=== PATIENT | female | born 1955 | race Caucasian/White ===

== ENCOUNTER 2020-01-25 09:51 | Inpatient (IN) ==
[2020-01-25] MEDS ORDERED: PIPERACILLIN SODIUM/TAZOBACTAM 3.375 GM in DEXTROSE 5 % IN WATER 100 ML IV ONE ×2 (10:28)
[2020-01-25 10:50] LABS: Hematocrit 38.5 % (37.0-47.0); Hemoglobin 12.9 gm/dL (12.5-16.0); Mean Cell Volume 88.7 fl (78-100); Mean Corpuscular Hemoglobin 29.7 pg (27-31); Mean Corpuscular Hgb Conc 33.5 g/dl (32-36); Mean Platelet Volume 9.5 fl (8-12.5); Neutrophil # 5.5 K/mm3 (1.3-6.0); Neutrophil % 65.7 % (42-75.0); Platelet Count 255 K/mm3 (150-450); Red Blood Count 4.34 M/mm3 (4.2-5.4); Red Cell Distribution Width 15.3 % (11.5-14.0); White Blood Count 8.4 K/mm3 (4.0-10.5)
[2020-01-25 11:15] LABS: Albumin * 3.5 gm/dl (3.4-5.0); Anion Gap 13.2 mmol/L (6.8-13.8); BUN/Creatinine Ratio 14.4 (9.0-21.6); Bilirubin, Total 0.5 mg/dL (0.0-1.1); Ca. Corrected For Albumin 9.3 mg/dL (8.4-10.2); Calcium * 9.2 mg/dL (7.9-10.9); Carbon Dioxide 27.1 mmol/L (24-32.6); Potassium 4.3 mmol/L (3.4-4.6); Total Protein 8.3 gm/dL (6.2-8.2)
[2020-01-25 11:16] LABS: CRP 14.4 mg/dL (0.0-0.9)
[2020-01-25] MEDS ORDERED: NORMAL SALINE 1,000 ML IV ONE (11:16)
[2020-01-25 11:36] LABS: Hemoglobin A1C 6.3 % (4.00-6.0)
--- NOTE | 2020-01-25 12:40 | ERNOTE ---
Lower Extremity HPI - Narrative Date of Service: 01/25/20 - General Lower Extremities Pain: 1st toe: right Time Seen by Provider: 01/25/20 10:18 Source: patient Exam Limitations: no limitations - Immun/Allergies/Home Medications Immunizations: IMMUNIZATION HX Immunizations Up to Date Yes History of Influenza Vaccine Yes Hx Pneumococcal Vaccination No Allergies/Adverse Reactions: Allergies Allergy/AdvReac Type Severity Reaction Status Date / Time codeine [Codeine] Allergy Severe Itching Verified 12/10/19 14:49 latex Allergy Severe Itching Verified 12/10/19 14:49 Home Medications: HOME MEDICATIONS Levothyroxine Sodium [Synthroid] 100 mcg PO DAILY@0630 #30 tab 10/29/14 [Last Taken 10/27/14] albuterol sulfate 90 mcg/actuation breath activated powder inhaler 4 inh IH Q4H PRN 04/02/19 [Last Taken Unknown] Losartan Potassium [Cozaar] 25 mg PO DAILY 04/26/19 [Last Taken Unknown] estradiol 1 g VG DAILY #42.5 g 05/09/19 [Last Taken Unknown] ibuprofen 800 mg tablet 800 mg PO TID 05/09/19 [Last Taken Unknown] Fluticasone Propionate [Flonase] 1 spray NS BID 01/25/20 [Last Taken Unknown] Sulfamethoxazole/Trimethoprim [Bactrim Ds] 1 tab PO BID 01/25/20 [Last Taken Unknown] - History of Present Illness Narrative: patient presents to the ED for worsenign infection right toe. She has had this for over 2 weeks. Thre is a hole on the bottom of the toe that she realts a piece of gravel was pulled out of. The toe became red and gradually worsening. Started on Bacrim approx 2 days ago at [facility]. Worsening despite this with increased redness and swelling. Has felt feverish at times. No other trauma. No drainage. Occurred: other - 2 weeks Method of Injury: Reports: no apparent injury Loss of Consciousness: Reports: no loss of consciousness Modifying Factors - (Improves): Reports: other - nothing Modifying Factors - (Worsens): Reports: other - nothing Associated Symptoms: Denies: unable to bear weight Other Injuries: Reports: none Subsequent Symptoms: Reports: other - neuropathy Prior Treament: Reports: recently seen, currently on antibiotics. Denies: recently hospitalized Review of Systems - Review of Systems Constitutional: Present: See HPI EYE: Present: no symptoms reported ENT: Present: no symptoms reported Respiratory: Absent: shortness of breath Cardiology: Absent: chest pain Gastrointestinal/Abdominal: Absent: abdominal pain Genitourinary: Absent: dysuria Musculoskeletal: Present: See HPI Skin: Present: See HPI Neurological: Absent: weakness All Other Systems: All systems neg except as marked Medical History (Last Reviewed 01/25/20 @ 12:38 by Joel Sheehan MD) Anxiety Asthma Deficient knowledge of caesarean delivery Depression Hypertension Type 2 diabetes mellitus Surgical History: Surgical History (Last Reviewed 01/25/20 @ 12:38 by Joel Sheehan MD) H/O dilation and curettage History of History of tonsillectomy Family History: Family History (Last Reviewed 01/25/20 @ 12:38 by Joel Sheehan MD) Father CVA (cerebral vascular accident) Emphysema lung Social History: (Last Reviewed 01/25/20 @ 12:38 by Joel Sheehan MD) Social History: adopted: No Marital status: Single household members: none number of children: 1 number of grandchildren: 4 current occupational status: disabled Highest education level completed: high school graduate Service: No Tobacco: Smoking Status: Never smoker Alcohol: alcohol intake: never Dietary Habits: caffeine: No Physical Exam - Physical Exam General Appearance: Present: alert, no apparent distress Head Exam: Present: normal inspection, no evidence of injury Eye Exam: Normal inspection: bilateral, PERRL: bilateral Ears, Nose, Throat: Present: normal ENT inspection Neck: Present: normal inspection Respiratory: Present: no respiratory distress, normal breath sounds, no a ccessory muscle use, lungs clear Cardiovascular/Chest: Present: regular rate, rhythm, normal peripheral pulses, other - strong DP pulse Gastrointestinal/Abdominal: Present: normal bowel sounds, nontender, soft Extremity Exam: Present: other - Right 1st toe with redness, swelling and small area of desquamation. There is a hole in the bottom of the toe. No blackened area. Left bottome of toe has a small blackened area but this is not bothering her. Neurological Exam: Present: alert, no motor/sensory deficits Skin Exam: Present: normal color, warm/dry, other - see extremity exam Progress - Results and Orders Patient's Lab Results:: I have reviewed the patient's lab results. - Vital Signs Patient's Vital Signs:: I have reviewed the patient's vital signs. Vital Signs: Vital Signs 01/25/20 10:06 01/25/20 11:03 Temperature 36.6 C Pulse Rate 67 63 Respiratory Rate 14 14 Blood Pressure 156/94 H 121/80 O2 Sat by Pulse Oximetry 98 97 - X-Ray X-Ray #1 X-Ray: foot Interpretation: Interp. by me X-ray Comments: I reviewed images as well as official radiology report - Progress/Reassessment Chief Complaint: Lower Extremity Pain/ Injury Progress Note-Subjective: 01/25/20 13:08 Patient given IV fluids and IV antibiotics. Halo'd Dr Oviedo, he recommends admission. D/W Dr Cade who will admit with consultation to Dr Oviedo. Patient is agreeable. Departure Clinical Impression: Toe infection, Failure of outpatient treatment - Departure Disposition: Still a patient Condition: Stable
[2020-01-25] MEDS ORDERED: IBUPROFEN 800 MG TABLET PO PRN (22:18)
--- NOTE | 2020-01-25 22:37 | HP ---
Chief Complaint - Chief Complaint Date of Service: 01/25/20 Time of Service: 10:15 Chief Complaint: Right great toe swelling and redness History of Present Illness: Lupe is a 64 yo female with PMH of diabetes (controlled with diet s lala losing significant weight), diabetic neuropathy with loss of sensation in feet. She reports walking outside with shoes a week ago and got a pebble lodged in her right great toe. A friend helped to dig it out and since then the right great toe has become more swollen and red. She does not feel pain. She reports she has been having fever and chills at home. She was seen in the walk in clinic in [place] and prescribed bactrim 3 days ago. She reports no improvement since starting this medication. She reports a prior history of MRSA. Due to worsening redness she came to [facility] ER today. Xray showed evidence of cellulitis but no presence of osteomyelitis on xray. Medical History (Last Reviewed 01/25/20 @ 14:29 by Brent Vail RN) Anxiety Asthma Deficient knowledge of caesarean delivery Depression Hypertension Type 2 diabetes mellitus Surgical History: Surgical History (Last Reviewed 01/25/20 @ 14:29 by Brent Vail RN) H/O dilation and curettage History of History of tonsillectomy Family History: Family History (Last Reviewed 01/25/20 @ 14:29 by Brent Vail RN) Father CVA (cerebral vascular accident) Emphysema lung Social History: (Last Reviewed 01/25/20 @ 14:29 by Brent Vail RN) Social History: adopted: No Marital status: Single household members: none number of children: 1 number of grandchildren: 4 current occupational status: disabled Highest education level completed: high school graduate Service: No Tobacco: Smoking Status: Never smoker Alcohol: alcohol intake: never Dietary Habits: caffeine: No Review Of Systems (GEN) - Review of Systems Generalized/Overall Review: Present: Chills, Fever, Diaphoresis. Absent: Weakness EENTM: Present: No Symptoms Reported Respiratory: Absent: Cough, Shortness of Breath Cardiac: Present: Edema. Absent: Chest Pain Abdominal: Absent: Nausea, Vomiting Genitourinary: Present: No Symptoms Reported Musculoskeletal: Present: No Symptoms Reported Neurological: Present: Numbness, Tingling Skin: Present: Change in Color. Absent: Lesions Immunizations: IMMUNIZATION HX Immunizations Up to Date Yes History of Influenza Vaccine Yes Hx Pneumococcal Vaccination No Allergies/Adverse Reactions: Allergies Allergy/AdvReac Type Severity Reaction Status Date / Time codeine [Codeine] Allergy Severe Itching Verified 12/10/19 14:49 latex Allergy Severe Itching Verified 12/10/19 14:49 Home Medications: HOME MEDICATIONS albuterol sulfate 90 mcg/actuation breath activated powder inhaler 4 inh IH Q4H PRN 04/02/19 [Last Taken Unknown] ibuprofen 800 mg tablet 800 mg PO TID PRN 05/09/19 [Last Taken Unknown] Fluticasone Propionate [Flonase] 1 spray NS BID 01/25/20 [Last Taken Unknown] Levothyroxine Sodium [Synthroid] 75 mcg PO DAILY 01/25/20 [Last Taken Unknown] Losartan Potassium 50 mg PO DAILY 01/25/20 [Last Taken Unknown] Sulfamethoxazole/Trimethoprim [Bactrim Ds] 1 tab PO BID 01/25/20 [Last Taken Unknown] Exam - Exam Vital Signs: Vital Signs - Last Taken Temp 36.6 C 01/25/20 18:47 Pulse 65 01/25/20 18:47 Resp 18 01/25/20 18:47 BP 149/89 01/25/20 18:47 Pulse Ox 95 01/25/20 18:47 Constitutional: Present: Alert, Oriented x3, Cooperative ENT Exam: Present: hearing grossly normal Eye Exam: bilateral eye: normal inspection Respiratory: Present: lungs clear, normal breath sounds, no respiratory distress Cardiovascular/Chest: Present: regular rate, rhythm, no murmur Peripheral Pulses: radial (R): 2+, radial (L): 2+ Abdomen: Present: Normal bowel sounds, soft, nontender Skin Exam: Present: other - Right great phalanx entirely swollen and erythematous. Dime sized open wound on dorsal and plantar surface. Neurologic: Present: alert, normal mood/affect, oriented x 3 Appearance: Present: appropriate appearance, appropriate insight Eye contact: Present: cooperative, good eye contact, normal speech Thoughts: Present: normal thought pattern, no apparent hallucination Diagnostic Studies: Abnormal Lab Results 01/25/20 01/25/20 01/25/20 Range/Units 10:40 10:40 10:40 RDW 15.3 H (11.5-14.0) % Lymphocytes % 19.6 L (20-51) % Monocytes % 9.5 H (0.0-9) % Eosinophils % 3.7 H (0.0-3.0) % Basophils % 1.1 H (0.0-1.0) % ESR 84 H (0-15) mm/hr Creatinine 1.53 H (0.4-1.4) mg/dL Est GFR (Non-Af Amer) 37 L D (60-130) mL/min Random Glucose 112 H (70-110) mg/dL Hemoglobin A1c (4.00-6.0) % Lactic Acid, Venous (0.4-2.0) mmol/L C-Reactive Prot, Quant 14.4 H (0.0-0.9) mg/dL Total Protein 8.3 H (6.2-8.2) gm/dL 01/25/20 01/25/20 01/25/20 Range/Units 10:40 10:40 13:31 RDW (11.5-14.0) % Lymphocytes % (20-51) % Monocytes % (0.0-9) % Eosinophils % (0.0-3.0) % Basophils % (0.0-1.0) % ESR (0-15) mm/hr Creatinine (0.4-1.4) mg/dL Est GFR (Non-Af Amer) (60-130) mL/min Random Glucose (70-110) mg/dL Hemoglobin A1c 6.3 H (4.00-6.0) % Lactic Acid, Venous 2.3 H* 2.1 H (0.4-2.0) mmol/L C-Reactive Prot, Quant (0.0-0.9) mg/dL Total Protein (6.2-8.2) gm/dL Laboratory Results WBC 8.4 K/mm3 (4.0-10.5) 01/25/20 10:40 RBC 4.34 M/mm3 (4.2-5.4) 01/25/20 10:40 Hgb 12.9 gm/dL (12.5-16.0) 01/25/20 10:40 Hct 38.5 % (37.0-47.0) 01/25/20 10:40 MCV 88.7 fl (78-100) 01/25/20 10:40 MCH 29.7 pg (27-31) 01/25/20 10:40 MCHC 33.5 g/dl (32-36) 01/25/20 10:40 RDW 15.3 % (11.5-14.0) H 01/25/20 10:40 Plt Count 255 K/mm3 (150-450) 01/25/20 10:40 MPV 9.5 fl (8-12.5) 01/25/20 10:40 Immature Gran % (Auto) 0.40 % (0.001-0.429) 01/25/20 10:40 Immature Gran # (Auto) 0.03 K/mm3 (0.000-0.0310) 01/25/20 10:40 Neutrophils % 65.7 % (42-75.0) 01/25/20 10:40 Lymphocytes % 19.6 % (20-51) L 01/25/20 10:40 Monocytes % 9.5 % (0.0-9) H 01/25/20 10:40 Eosinophils % 3.7 % (0.0-3.0) H 01/25/20 10:40 Basophils % 1.1 % (0.0-1.0) H 01/25/20 10:40 Nucleated RBC % 0.0 k/mm3 (0-1) 01/25/20 10:40 Neutrophils # 5.5 K/mm3 (1.3-6.0) 01/25/20 10:40 Lymphocytes # 1.65 k/mm3 (1.5-3.5) 01/25/20 10:40 Monocytes # 0.8 k/mm3 (0.0-1.0) 01/25/20 10:40 Eosinophils # 0.3 k/mm3 (0.0-0.7) 01/25/20 10:40 Absolute Basophils 0.1 k/mm3 (0.0-0.1) 01/25/20 10:40 ESR 84 mm/hr (0-15) H 01/25/20 10:40 Sodium 139 mmol/L (132-142) 01/25/20 10:40 Plasma Sodium 139 mmol/L (130-142) 01/25/20 10:40 Potassium 4.3 mmol/L (3.4-4.6) 01/25/20 10:40 Chloride 103 mmol/L (97-106) 01/25/20 10:40 Carbon Dioxide 27.1 mmol/L (24-32.6) 01/25/20 10:40 Anion Gap 13.2 mmol/L (6.8-13.8) 01/25/20 10:40 BUN 22 mg/dL (3-23) 01/25/20 10:40 Creatinine 1.53 mg/dL (0.4-1.4) H 01/25/20 10:40 Est GFR (Non-Af Amer) 37 mL/min (60-130) L D 01/25/20 10:40 BUN/Creatinine Ratio 14.4 (9.0-21.6) 01/25/20 10:40 Random Glucose 112 mg/dL (70-110) H 01/25/20 10:40 Mean Blood Glucose 124 mg/dL 01/25/20 10:40 Hemoglobin A1c 6.3 % (4.00-6.0) H 01/25/20 10:40 Lactic Acid, Venous 2.1 mmol/L (0.4-2.0) H 01/25/20 13:31 Calcium 9.2 mg/dL (7.9-10.9) 01/25/20 10:40 Calcium Adj for Albumin 9.3 mg/dL (8.4-10.2) 01/25/20 10:40 Total Bilirubin 0.5 mg/dL (0.0-1.1) 01/25/20 10:40 AST 15 U/L (0-48) 01/25/20 10:40 ALT 22 U/L (19-67) 01/25/20 10:40 Alkaline Phosphatase 65 U/L (50-170) 01/25/20 10:40 C-Reactive Prot, Quant 14.4 mg/dL (0.0-0.9) H 01/25/20 10:40 Total Protein 8.3 gm/dL (6.2-8.2) H 01/25/20 10:40 Albumin 3.5 gm/dl (3.4-5.0) 01/25/20 10:40 SARS-CoV-2 (PCR) Not detected (ND) 01/25/20 13:02 Assessment/Plan - Narrative Narrative: Lupe is a 64 yo female with a right diabetic foot ulcer secondary to diabetic neuropathy secondary to Type II Diabetes Mellitus. Her diabetes is now well controlled with diet and activity. She is not on medications and A1c is 6.3%. However the nerve damage is already in place from previously when her blood sugars were not controlled. She was started on zosyn in the ER. She has a history of MRSA so I will add Vancomycin at this time. Xray does not show evidence of osteomyelitis although it is high likely given the appearance of her foot. I will attempt to heal infection with antibiotics, but she may ultimately need amputation. Will consult ortho to evaluate and give recommendations as far as amputation is concerned. She has no pain due to neuropathy with sensory loss. Will admit to inpatient as she has failed outpatient treatment of cellulitis with bactrim for 3 days prior to admission. - Assessment/Plan (1) Cellulitis of great toe, right Problem: Acute (2) Diabetic ulcer of right foot due to type 2 diabetes mellitus Problem: Acute (3) Neuropathic ulcer of foot due to type 2 diabetes mellitus Problem: Acute
[2020-01-25] MEDS ORDERED: VANCOMYCIN/WATER FOR INJ (PEG) 1 GM/200 ML BAG IV SCH (23:00)
[2020-01-25] MEDS: SACCHAROMYCES BOULARDII 250 MG CAPSULE PO SCH (23:37)
[2020-01-26] MEDS: PIPERACILLIN SODIUM/TAZOBACTAM 3.375 GM in DEXTROSE 5 % IN WATER 100 ML IV SCH ×4 (02:33→09:27)
[2020-01-26 06:09] LABS: Hematocrit 34.5 % (37.0-47.0); Hemoglobin 11.4 gm/dL (12.5-16.0); Mean Cell Volume 87.3 fl (78-100); Mean Corpuscular Hemoglobin 28.9 pg (27-31); Mean Platelet Volume 9.5 fl (8-12.5); Neutrophil # 4.1 K/mm3 (1.3-6.0); Neutrophil % 54.7 % (42-75.0); Platelet Count 244 K/mm3 (150-450); Red Blood Count 3.95 M/mm3 (4.2-5.4); White Blood Count 7.4 K/mm3 (4.0-10.5)
[2020-01-26 06:26] LABS: Anion Gap 11.1 mmol/L (6.8-13.8); BUN/Creatinine Ratio 18.6 (9.0-21.6); Bilirubin, Total 0.4 mg/dL (0.0-1.1); CRP 10.4 mg/dL (0.0-0.9); Ca. Corrected For Albumin 9.4 mg/dL (8.4-10.2); Calcium * 8.9 mg/dL (7.9-10.9); Carbon Dioxide 25.9 mmol/L (24-32.6); Total Protein 7.5 gm/dL (6.2-8.2)
[2020-01-26] MEDS: LEVOTHYROXINE SODIUM 75 MCG TABLET PO SCH (06:45)
[2020-01-26] MEDS: SACCHAROMYCES BOULARDII 250 MG CAPSULE PO SCH ×2 (09:21→20:30)
[2020-01-26] MEDS: LOSARTAN POTASSIUM 50 MG TABLET PO SCH (09:21)
[2020-01-26] MEDS: WATER IV SCH ×4 (10:20→22:22)
[2020-01-26] MEDS: CEFTAROLINE FOSAMIL ACETATE IV SCH ×4 (10:20→22:22)
[2020-01-26] MEDS: DEXTROSE 5% IV SCH ×4 (10:20→22:22)
--- NOTE | 2020-01-26 13:03 | PN ---
Subjective - Date and Time Seen Date: 01/26/20 Time: 11:00 Subjective Narrative: Lupe reports not change. Toe is still red and swollen. No pain. No nausea, vomiting, fever, or chills. Objective - Vitals Vitals: Last Vital Signs Temp 36.8 C 01/26/20 06:54 Pulse 65 01/26/20 09:21 Resp 16 01/26/20 06:54 BP 160/56 H 01/26/20 09:21 Pulse Ox 97 01/26/20 06:54 - Abnormal Lab Findings Abnormal Lab Findings: Abnormal Lab Results 01/25/20 01/26/20 01/26/20 Range/Units 13:31 05:55 05:55 RBC 3.95 L (4.2-5.4) M/mm3 Hgb 11.4 L (12.5-16.0) gm/dL Hct 34.5 L (37.0-47.0) % RDW 15.0 H (11.5-14.0) % Monocytes % 12.2 H (0.0-9) % Eosinophils % 5.2 H (0.0-3.0) % Est GFR (Non-Af Amer) 49 L D (60-130) mL/min Random Glucose 127 H (70-110) mg/dL Lactic Acid, Venous 2.1 H (0.4-2.0) mmol/L C-Reactive Prot, Quant 10.4 H (0.0-0.9) mg/dL Albumin 3.0 L (3.4-5.0) gm/dl - Exam Constitutional: Present: Alert, Oriented x3, Cooperative ENT Exam: Present: hearing grossly normal Respiratory: Present: lungs clear, normal breath sounds, no respiratory distress Cardiovascular/Chest: Present: regular rate, rhythm Abdomen: Present: Normal bowel sounds, soft, nontender Skin Exam: Present: other - Erythema and swelling of right great toe. Unchanged from yesterday. Assessment/Plan Plan Narrative: Lupe has not had improvement thus far of right great toe infection. Orthopedics evaluated and discussed treatment options. She elected for amputation of right great toe which will be done tomorrow. She will be NPO at midnight. She is medically cleared for surgery tomorrow. - Problems/Diagnosis (1) Cellulitis of great toe, right Problem: Acute (2) Diabetic ulcer of right foot due to type 2 diabetes mellitus Problem: Acute (3) Neuropathic ulcer of foot due to type 2 diabetes mellitus Problem: Acute
--- NOTE | 2020-01-26 13:05 | CONS ---
[facility] - General Date of Service: 01/26/20 Narrative: Mrs. Finch is a 64-year-old diabetic female who states that she was walking around barefoot when she had a retained foreign body into her right great toe secondary to lack of sensation. She had a friend remove the foreign body which she states was a pebble a few days back but noted increasing cellulitis, inflammation, purulence, and progressive drainage. She was seen in outside hospital and had oral antibiotics however she progressed to a point where she was seen in the emergency department with concern for deep infection. She denies any sensation. She reports that she is got a wound on the other foot that is chronic as well but this one has become more problematic on her right foot Source: patient Exam Limitations: no limitations - History of Present Illness Timing/Duration: 1 week Severity: moderate Modifying Factors - (Improves): Reports: medication Associated Symptoms: denies symptoms Allergies/Adverse Reactions: Allergies codeine [Codeine] Allergy (Severe, Verified 12/10/19 14:49) Itching latex Allergy (Severe, Verified 12/10/19 14:49) Itching Home Medications: Home Medications Medication Instructions Recorded Last Taken albuterol sulfate 90 mcg/actuation 4 inh IH Q4H PRN 04/02/19 Unknown breath activated powder inhaler ibuprofen 800 mg tablet 800 mg PO TID PRN 05/09/19 Unknown Fluticasone Propionate [Flonase] 1 spray NS BID 01/25/20 Unknown Levothyroxine Sodium [Synthroid] 75 mcg PO DAILY 01/25/20 Unknown Losartan Potassium 50 mg PO DAILY 01/25/20 Unknown Sulfamethoxazole/Trimethoprim 1 tab PO BID 01/25/20 Unknown [Bactrim Ds] Medications - Medications Current Medications: Current Medications Ceftaroline Fosamil 600 mg/ (Dextrose/Water) 70 mls @ 100 mls/hr IV Q12H SALINA Stop: 02/25/20 10:01 Last Infusion: 01/26/20 11:02 Dose: Infused Documented by: Levothyroxine Sodium (Synthroid) 75 mcg PO 0700 SAILNA Stop: 02/25/20 07:01 Last Admin: 01/26/20 06:45 Dose: 75 mcg Documented by: Losartan Potassium (Cozaar) 50 mg PO DAILY SALINA Stop: 02/25/20 09:01 Last Admin: 01/26/20 09:21 Dose: 50 mg Documented by: Saccharomyces Boulardii (Florastor) 250 mg PO BID SALINA Stop: 02/24/20 22:31 Last Admin: 01/26/20 09:21 Dose: 250 mg Documented by: Review of Systems - Review of Systems Generalized/Overall Review: Present: No Symptoms Reported. Absent: Fever Physical Examination - Exam Narrative: Right great toe: Grossly enlarged with significant erythema, purulent drainage over the medial and plantar aspect, there is a full-thickness callused ulcer on the plantar aspect of the great toe in the area of her reported prior foreign body, she is able to flex and extend her toe but has no sensation, brisk cap refill Vital Signs: Vital Signs - Last Taken Temp 36.8 C 01/26/20 06:54 Pulse 65 01/26/20 09:21 Resp 16 01/26/20 06:54 BP 160/56 H 01/26/20 09:21 Pulse Ox 97 01/26/20 06:54 O2 Oxygen Delivery Method Room Air Constitutional: Present: Alert, Oriented x3 - Results and Findings: Narrative: Right foot x-rays,: Soft tissue shadow and thickening consistent with her clinical exam, no gross signs of chronic osteomyelitis Lab/Microbiology results last 24 hrs: Abnormal/Pending Laboratory Last 24 HRS 01/26/20 01/26/20 01/25/20 05:55 05:55 13:31 RBC 3.95 L Hgb 11.4 L Hct 34.5 L RDW 15.0 H Monocytes % 12.2 H Eosinophils % 5.2 H Est GFR (Non-Af Amer) 49 L D Random Glucose 127 H Lactic Acid, Venous 2.1 H C-Reactive Prot, Quant 10.4 H Albumin 3.0 L Culture 01/25/20 10:57 Blood Culture - Preliminary Blood NO GROWTH 24 HOURS 01/25/20 10:40 Blood Culture - Preliminary Blood NO GROWTH 24 HOURS 01/25/20 14:44 - Final Nares MRSA Negative 01/25/20 12:35 Wound Culture - Preliminary Toe - Right Strep Agalactiae Group B - Assessments/Findings (1) Diabetic ulcer of right foot due to type 2 diabetes mellitus Diagnosis(s): Based on the extent of the wound and concern for deep infection we discussed the options for treatment. She like to proceed with amputation. We reviewed that she should keep close eye on the contralateral foot as she does have a small ulcer on that side as well. Plan is to undergo surgical intervention tomorrow. She will be n.p.o. after midnight. Consent was obtained. Problem: Acute
--- NOTE | 2020-01-27 09:28 | PREOP NOTE ---
Preoperative Progress Note - Preoperative Changes Changes to Preop Condition?: No Changes
[2020-01-27] MEDS: CEFTAROLINE FOSAMIL ACETATE 600 MG in DEXTROSE 5 % IN WATER 100 ML IV SCH ×4 (10:06→21:50)
--- NOTE | 2020-01-27 13:17 | ANES ---
Anesthesia Pre Procedure Eval Vitals/Labs: Last Vital Signs Temp 36.5 C 01/27/20 07:00 Pulse 66 01/27/20 07:00 Resp 18 01/27/20 07:00 BP 149/67 01/27/20 07:00 Pulse Ox 96 01/27/20 07:00 Hemoglobin A1c 6.3 % (4.00-6.0) H 01/25/20 10:40 HOME MEDICATIONS albuterol sulfate 90 mcg/actuation breath activated powder inhaler 4 inh IH Q4H PRN 04/02/19 [Last Taken Unknown] ibuprofen 800 mg tablet 800 mg PO TID PRN 05/09/19 [Last Taken Unknown] Fluticasone Propionate [Flonase] 1 spray NS BID 01/25/20 [Last Taken Unknown] Levothyroxine Sodium [Synthroid] 75 mcg PO DAILY 01/25/20 [Last Taken Unknown] Losartan Potassium 50 mg PO DAILY 01/25/20 [Last Taken Unknown] Sulfamethoxazole/Trimethoprim [Bactrim Ds] 1 tab PO BID 01/25/20 [Last Taken Unknown] Allergies/Adverse Reactions: Allergies Allergy/AdvReac Type Severity Reaction Status Date / Time codeine [Codeine] Allergy Severe Itching Verified 12/10/19 14:49 latex Allergy Severe Itching Verified 12/10/19 14:49 - Planned Procedure Planned Procedure: Right Great Toe Infection,Cellulitis,Poss Osteo Medication List Reviewed:: Yes Allergies Verified: Yes Medical History (Last Reviewed 01/27/20 @ 13:17 by Fermin Harper CRNA) Anxiety Asthma Deficient knowledge of caesarean delivery Depression Hypertension Type 2 diabetes mellitus Surgical History (Last Reviewed 01/27/20 @ 13:17 by Fermin Harper CRNA) H/O dilation and curettage History of History of tonsillectomy Family History (Last Reviewed 01/27/20 @ 13:17 by Fermin Harper CRNA) Father CVA (cerebral vascular accident) Emphysema lung - Family Anesthesia History Family History:: no untoward family reactions to anesthesia, no familial bleeding tendencies, no family history of clotting disorders, no family history of premature - Airway/Neck/Teeth Teeth Condition: missing Mallampatti Score: 3 Thyromental (T-M) distance: > 6 cm Mandibulo Hyoid distance: > 3 cm - Respiratory Respiratory Physical: lungs clear Smoking Status: Never smoker Discussed smoking cessation including day of surgery: No Sleep Apnea currently treated: No Sleep Apnea by current assessment: No Discussed Risks/Treatment of XIOMY: No - Cardiovascular Tolerate Activity: Fair Heart Sounds: S1 & S2, Regular - Anesthesia Assessment and Plan ASA Class: PS, II Anesthesia Type Plan: MAC
[2020-01-27] MEDS ORDERED: PROPOFOL VIAL IV ONE (13:20)
[2020-01-27] MEDS ORDERED: BUPIVACAINE HCL 50 ML VIAL IJ ONE (13:20)
[2020-01-27] MEDS ORDERED: MIDAZOLAM HCL/PF 5 MG/ML VIAL ONE (13:20)
[2020-01-27] MEDS ORDERED: ceFAZolin SODIUM 1 GM VIAL ONE (13:53)
[2020-01-27] MEDS ORDERED: ceFAZolin SODIUM 2 GM in DEXTROSE 5 % IN WATER 50 ML IV PRN ×2 (14:09)
[2020-01-27] MEDS ORDERED: RINGER'S SOLUTION,LACTATED 1,000 ML IV PRN (14:09)
[2020-01-27] MEDS ORDERED: ceFAZolin SODIUM 1 GM VIAL IV PRN ×2 (14:11)
[2020-01-27] MEDS ORDERED: ZOLPIDEM TARTRATE 5 MG TABLET PO PRN (14:26)
[2020-01-27] MEDS ORDERED: MAGNESIUM HYDROXIDE 30 ML UDC PO PRN (14:26)
[2020-01-27] MEDS ORDERED: diphenhydrAMINE HCL 50 MG/ML VIAL IV PRN (14:26)
[2020-01-27] MEDS ORDERED: ONDANSETRON HCL/PF 2 MG/ML VIAL IV PRN (14:26)
[2020-01-27] MEDS ORDERED: MAG HYDROX/ALUMINUM HYD/SIMETH 30 ML UDC PO PRN (14:26)
--- NOTE | 2020-01-27 14:26 | OR ---
Operative Report - Dictated Report Narrative: DATE OF PROCEDURE: 01/27/2020 SURGEON: Kenroy Oviedo MD ASTRONOMY DEPARTMENT CHAIR: JEANNE Traylor PREOPERATIVE DIAGNOSIS: Chronic full-thickness ulcer right great toe with cellulitis POSTOPERATIVE DIAGNOSIS: Chronic full-thickness ulcer right great toe with cellulitis OPERATION PERFORMED: Amputation right great toe at the metatarsal phalangeal joint ANESTHESIA: MAC. COMPLICATIONS: None. DRAINS: None. SPECIMENS: Tissue for pathology. ESTIMATED BLOOD LOSS: Minimal. RETAINED IMPLANTS: None. Tourniquet time: 11 minutes at 250 mmHg INDICATIONS FOR PROCEDURE: Mrs. Finch is a 64-year-old diabetic female who was walking barefoot when she injured her toe resulting in a retained foreign body. This was removed however she had increasing swelling, drainage, cellulitis, and deformity. She is neuropathic due to her chronic diabetes and thus she did not have any sensation in this however this failed to respond to outpatient oral antibiotics and she was admitted for evaluation. While the x-rays did not show gross osteomyelitis she did have a tracking ulcer down to the bone on the plantar aspect of her foot, she elected to proceed with an amputation. The risks, benefits, and alternatives were discussed, and he wished to proceed. Consent was obtained. DESCRIPTION OF PROCEDURE: After taken the patient the operating room, timeout was performed. IV antibiotics consisting of Ancef was administered in addition to her routine scheduled antibiotics. A well-padded tourniquet was applied to the right calf. The right leg was prepped and draped in a standard sterile fashion. After elevating the extremity and inflating the tourniquet to 250 mmHg, it was noted that the plantar ulcer did extend down to bone. A fishmouth type amputation was performed at the base of the great toe completely excising the ulcer and draining site. The toe was disarticulated at the metatarsal phalangeal joint. The metatarsal head was debulked as well as the surrounding soft tissues in order for a low-tension repair of the soft tissues. The wound was thoroughly irrigated and tourniquet was deflated. Hemostasis was obtained. Interrupted 2-0 nylon and 3-0 nylon was utilized in order to repair and close the amputation site. There did not appear to be any gross purulence or necrosis of the remaining tissues. The toe was covered with Xeroform, 4 x 4, Stephen and Coban. All sponge, needle and instrument counts were correct prior to closing the wounds.
[2020-01-27] MEDS ORDERED: FLUMAZENIL 0.1 MG/ML VIAL IV ONE (14:27)
--- NOTE | 2020-01-27 14:38 | ANES ---
Post Anesthesia Discharge - Transfer of Care Transfer of Care handoff given to nurse: Yes - Discharge to ASU Discharge to ASU-no complications/pt stable: Yes - Awake and comfortable.
--- NOTE | 2020-01-27 14:54 | ANES ---
Post Anesthesia Assessment - Vital Signs Vitals: Last Vital Signs Temp 36.3 C 01/27/20 14:35 Pulse 52 L 01/27/20 14:35 Resp 14 01/27/20 14:35 BP 130/62 01/27/20 14:35 Pulse Ox 99 01/27/20 14:35 Airway Patency: Normal - Mental Status Level Of Consciousness: Awake, Alert, Appropriate - Pain Level Pain Score: 0 - N/V Assessment Nausea/Vomiting Presence: None Dehydration:: No
[2020-01-27] MEDS: SACCHAROMYCES BOULARDII 250 MG CAPSULE PO SCH ×2 (17:22→21:49)
[2020-01-27] MEDS: LEVOTHYROXINE SODIUM 75 MCG TABLET PO SCH (17:22)
[2020-01-27] MEDS: LOSARTAN POTASSIUM 50 MG TABLET PO SCH (17:22)
[2020-01-27] MEDS ORDERED: SENNOSIDES/DOCUSATE SODIUM 1 TAB TABLET PO SCH (21:00)
--- NOTE | 2020-01-27 23:36 | PN ---
Subjective - Date and Time Seen Date: 01/27/20 Time: 09:30 Subjective Narrative: Lupe reports no change. No fever, chills, nausea, or vomiting. Ortho planning for amputation today. Objective - Vitals Vitals: Last Vital Signs Temp 36.4 C 01/27/20 22:24 Pulse 50 L 01/27/20 22:24 Resp 16 01/27/20 22:24 BP 153/49 H 01/27/20 22:24 Pulse Ox 95 01/27/20 22:24 - Exam Constitutional: Present: Alert, Oriented x3, Cooperative ENT Exam: Present: hearing grossly normal Respiratory: Present: lungs clear, normal breath sounds, no respiratory distress Cardiovascular/Chest: Present: regular rate, rhythm, no edema, no murmur Abdomen: Present: Normal bowel sounds, soft, nontender, nondistended Skin Exam: Present: other - Right great toe remains erythematous and swollen, no significant improvement. Neurologic: Present: alert, normal mood/affect, oriented x 3 Appearance: Present: appropriate appearance, appropriate insight Eye contact: Present: cooperative, normal speech Thoughts: Present: normal thought pattern, no apparent hallucination Assessment/Plan Plan Narrative: Failed treatment with antibiotics, ortho to perform amputation today. Will continue IV antibiotics for now, but should be able to start on oral antibiotics once infected tissue has been amputated. - Problems/Diagnosis (1) Cellulitis of great toe, right Problem: Acute (2) Diabetic ulcer of right foot due to type 2 diabetes mellitus Problem: Acute (3) Neuropathic ulcer of foot due to type 2 diabetes mellitus Problem: Acute
[2020-01-28] MEDS: ACETAMINOPHEN 500 MG TABLET PO PRN ×2 (02:50→09:10)
[2020-01-28] MEDS: LEVOTHYROXINE SODIUM 75 MCG TABLET PO SCH (06:54)
--- NOTE | 2020-01-28 08:01 | PN ---
Subjective - Date and Time Seen Date: 01/28/20 Time: 07:58 Subjective Narrative: Subjective: Reports no concerns. Was able to walk in the room. Pain is well- controlled. Voiding without any complications. Tolerating by mouth intake. Denies any nausea or vomiting. Physical exam: Alert and oriented to person, place and time Right lower extremity: Dressings dry, no sign of drainage, she is able to move her other toes Assessment: Postop day 1 status post right great toe amputation. Plan: From an orthopedic standpoint she is okay to be discharged home. I would like to see her back next week. Keep her dressings dry. I do not feel she needs continued antibiotics due to the fact that the infection was contained in the resected tissue. She can walk on her heel with a postop shoe. She should get a postop shoe prior to being discharged. Do not feel she needs any additional physical therapy post discharge. Objective - Vitals Vitals: Last Vital Signs Temp 36.3 C 01/28/20 06:45 Pulse 53 L 01/28/20 06:45 Resp 12 01/28/20 06:45 BP 136/75 01/28/20 06:45 Pulse Ox 96 01/28/20 06:45 Assessment/Plan - Problems/Diagnosis (1) Diabetic ulcer of right foot due to type 2 diabetes mellitus Problem: Acute
[2020-01-28] MEDS: SACCHAROMYCES BOULARDII 250 MG CAPSULE PO SCH (09:09)
[2020-01-28] MEDS: LOSARTAN POTASSIUM 50 MG TABLET PO SCH (09:09)
[2020-01-28] MEDS: CEFTAROLINE FOSAMIL ACETATE 600 MG in DEXTROSE 5 % IN WATER 100 ML IV SCH ×2 (09:10)
--- NOTE | 2020-01-28 13:16 | DS ---
(1) Cellulitis of great toe, right Problem: Acute (2) Diabetic ulcer of right foot due to type 2 diabetes mellitus Problem: Acute (3) Neuropathic ulcer of foot due to type 2 diabetes mellitus Problem: Acute Date of Discharge:: 01/28/20 Hospital Course: Lupe is a 64 yo female admitted for right great toe cellulitis with diabetic foot ulcer and concern for osteomyelitis. She was treated with bactrim as outpatient. She was started on zosyn and vancomycin initially and then switched to Teflaro. Orthopedics were consulted and recommend amputation due to Chronic full-thickness ulcer of the right great toe with cellulitis. She was cleared for surgery and underwent surgery on 01/27/20. She did well without complications. She will be discharged to home today. She is reporting pain today and I will send her home with a rx for tramadol. She is to get a post op surgical shoe before discharge and should ambulate with this. She should keep dressings clean and dry. She will follow up with ortho in 1 week. Procedures Performed: see notes below - Right Great Toe Amputation 01/27/2020 Results and Findings: Pending Mircobiology Results 01/25/20 10:57 Blood Blood Culture - Preliminary NO GROWTH AFTER 48 HOURS 01/25/20 10:40 Blood Blood Culture - Preliminary NO GROWTH AFTER 48 HOURS Lab Pending Results 01/25/20 10:40: WBC 8.4, RBC 4.34, Hgb 12.9, Hct 38.5, MCV 88.7, MCH 29.7, MCHC 33.5, RDW 15.3 H, Plt Count 255, MPV 9.5, Immature Gran % (Auto) 0.40, Immature Gran # (Auto) 0.03, Neutrophils % 65.7, Lymphocytes % 19.6 L, Monocytes % 9.5 H, Eosinophils % 3.7 H, Basophils % 1.1 H, Nucleated RBC % 0.0, Neutrophils # 5.5, Lymphocytes # 1.65, Monocytes # 0.8, Eosinophils # 0.3, Absolute Basophils 0.1 01/25/20 10:40: ESR 84 H 01/25/20 10:40: Sodium 139, Plasma Sodium 139, Potassium 4.3, Chloride 103, Carbon Dioxide 27.1, Anion Gap 13.2, BUN 22, Creatinine 1.53 H, Est GFR (Non-Af Amer) 37 L D, BUN/Creatinine Ratio 14.4, Random Glucose 112 H, Calcium 9.2, Calcium Adj for Albumin 9.3, Total Bilirubin 0.5, AST 15, ALT 22, Alkaline Phosphatase 65, C-Reactive Prot, Quant 14.4 H, Total Protein 8.3 H, Albumin 3.5 01/25/20 10:40: Lactic Acid, Venous 2.3 H* 01/25/20 10:40: Mean Blood Glucose 124, Hemoglobin A1c 6.3 H 01/25/20 13:02: SARS-CoV-2 (PCR) Not detected 01/25/20 13:31: Lactic Acid, Venous 2.1 H 01/26/20 05:55: WBC 7.4, RBC 3.95 L, Hgb 11.4 L, Hct 34.5 L, MCV 87.3, MCH 28.9, MCHC 33.0, RDW 15.0 H, Plt Count 244, MPV 9.5, Immature Gran % (Auto) 0.30, Immature Gran # (Auto) 0.02, Neutrophils % 54.7, Lymphocytes % 26.8, Monocytes % 12.2 H, Eosinophils % 5.2 H, Basophils % 0.8, Nucleated RBC % 0.0, Neutrophils # 4.1, Lymphocytes # 1.99, Monocytes # 0.9, Eosinophils # 0.4, Absolute Basophils 0.1 01/26/20 05:55: Sodium 138, Plasma Sodium 138, Potassium 4.0, Chloride 105, Carbon Dioxide 25.9, Anion Gap 11.1, BUN 22, Creatinine 1.18, Est GFR (Non-Af Amer) 49 L D, BUN/Creatinine Ratio 18.6, Random Glucose 127 H, Calcium 8.9, Calcium Adj for Albumin 9.4, Total Bilirubin 0.4, AST 15, ALT 19, Alkaline Phosphatase 60, C-Reactive Prot, Quant 10.4 H, Total Protein 7.5, Albumin 3.0 L Discharge Location: Home Disposition: Home Health Service [facility]: [facility] Home Health Condition: Stable Discharge Activity: Activity as tolerated - with post op shoe Discharge Diet: Consistent carbs Referrals: Kenroy Oviedo MD [Staff Physician] - One Week Mary Funes CNP [Primary Care Provider] - Two Weeks Problem Oriented Discharge Instructions to Patient/Family: Cellulitis, Adult, [id number] Additional Patient Instructions (free text): [facility] Home Health new at discharge- Nursing and PT. Please fax discharge orders, medications, and call report. [facility] appointment with Glenis Hyman in [place] on February 04 at 10:30. Please arrive at 10 AM to fill out paperwork. Address: [address] [place] [address] Follow up with in 1 week. Fill out the psychiatry packet and return to [facility] psychiatry to schedule an appointment with Garima Sharp or Belgica Wong. Keep dressings dry. Prescriptions (Any new or edited meds): traMADol HCL [Tramadol HCl] 50 mg PO QID PRN #30 tablet PRN Reason: moderate pain Transmission Status: Received by Giorgio Toure [place], [place] Complete Home Medications List: Complete Home Medication List: albuterol sulfate 90 mcg/actuation breath activated powder inhaler 4 inh IH Q4H PRN 04/02/19 ibuprofen 800 mg tablet 800 mg PO TID PRN 05/09/19 Fluticasone Propionate [Flonase] 1 spray NS BID 01/25/20 Levothyroxine Sodium [Synthroid] 75 mcg PO DAILY 01/25/20 Losartan Potassium 50 mg PO DAILY 01/25/20 Sulfamethoxazole/Trimethoprim [Bactrim Ds] 1 tab PO BID 01/25/20 traMADol HCL [Tramadol HCl] 50 mg PO QID PRN #30 tablet 01/28/20
[2020-01-28 13:54] VITALS: BP 149/47
[2020-01-28] MEDS ORDERED: VANCOMYCIN HCL LEVEL XX ONE (22:30)
== END 2020-01-28 14:15 | disposition home health service (06) | DRG 617 ==
LOC: ER 09:51 → MS 09:51
PROVIDERS: ADMIT Family Medicine; ATTEND Family Medicine
DX: E11.621 Type 2 diabetes mellitus with foot ulcer; L98.498 Non-pressure chronic ulcer of skin of other sites with other specified severity; F41.8 Other specified anxiety disorders; E11.40 Type 2 diabetes mellitus with diabetic neuropathy, unspecified; I10 Essential (primary) hypertension; L03.031 Cellulitis of right toe; B95.1 Streptococcus, group B, as the cause of diseases classified elsewhere; E11.622 Type 2 diabetes mellitus with other skin ulcer; Z11.59 Encounter for screening for other viral diseases
CPT/HCPCS: 36415; 73630; 80053; 83036; 83605; 85025; 85652; 86140; 87040; 87070; 87077; 87081; 87186; 88302; 88305; 88311; 88888; 96365; 96366; 96367; 99284; 99285; G0378

== ENCOUNTER 2020-09-29 12:01 | Inpatient (IN) ==
--- NOTE | 2020-09-29 12:44 | ERNOTE ---
Lower Extremity HPI - Narrative Date of Service: 09/29/20 - General Lower Extremities Pain: foot: right Time Seen by Provider: 09/29/20 12:39 Source: patient, other - friend Exam Limitations: no limitations - Immun/Allergies/Home Medications Immunizations: IMMUNIZATION HX Immunizations Up to Date Yes History of Influenza Vaccine No Hx Pneumococcal Vaccination No Allergies/Adverse Reactions: Allergies Allergy/AdvReac Type Severity Reaction Status Date / Time codeine [Codeine] Allergy Severe Itching Verified 09/29/20 12:31 latex Allergy Severe Itching Verified 09/29/20 12:31 Home Medications: HOME MEDICATIONS albuterol sulfate 90 mcg/actuation breath activated powder inhaler 4 inh IH Q4H PRN 04/02/19 [Last Taken Unknown] Fluticasone Propionate [Flonase] 1 spray NS BID 01/25/20 [Last Taken Unknown] Levothyroxine Sodium [Synthroid] 75 mcg PO DAILY 01/25/20 [Last Taken Unknown] Losartan Potassium 50 mg PO DAILY 01/25/20 [Last Taken Unknown] Durable Medical Equipment See Rx Instructions .ROUTE .MEDSUPPLY #1 ea 03/03/20 [Last Taken Unknown] gabapentin 300 mg capsule 300 mg PO TID cap 06/03/20 [Last Taken Unknown] - Pain Score Pain Score #1 Pain Score: 0 - History of Present Illness Narrative: Patient is c/o redness,swelling of right 4th and 5th toes for one week,gradual onset,constant,worsening,radiating to foot and ankle/lower leg area. Pt denies pain,She has neuropathy/sensory loss.Pt has h/o diabetes mellitus , diet controlled at this point . Pt was taken insulin and metformin several years ago . Patient has h/o s/p amputation of RT great toe , 7 months ago . Date (Duration): 09/22/20 Method of Injury: Reports: no apparent injury Loss of Consciousness: Reports: no loss of consciousness Associated Symptoms: Denies: dizzy/light headedness, headache, weakness, chest pain, vomiting/diarrhea, bowel/bladder problems Prior Treament: Denies: currently on antibiotics Review of Systems - Review of Systems Constitutional: Absent: fever, chills, diaphoresis, weakness, fatigue, decreased activity level EYE: Absent: eye pain, blurred vision ENT: Absent: nose pain, nose congestion, sore throat, throat swelling Respiratory: Absent: shortness of breath, cough, wheezing Cardiology: Absent: chest pain, palpitations, syncope Gastrointestinal/Abdominal: Absent: nausea, vomiting, diarrhea, constipation, abdominal pain Genitourinary: Absent: frequency, pain, dysuria, hematuria, decreased urinary output Skin: Absent: dryness Neurological: Absent: anxiety, depressed, seizure Endocrine: Absent: increased thirst, increased urine Hematologic/Lymphatic: Absent: easy bruising, easy bleeding, swollen glands Psych: Absent: anxiety, depressed Medical History (Last Reviewed 09/29/20 @ 12:32 by Jenny Knowles RN) Anxiety Asthma Deficient knowledge of caesarean delivery Depression Hypertension Type 2 diabetes mellitus Surgical History: Surgical History (Last Reviewed 09/29/20 @ 12:32 by Jenny Knowles RN) H/O dilation and curettage History of History of tonsillectomy S/P foot surgery Onset Date: ~01/27/20 OPERATION PERFORMED: Amputation right great toe at the metatarsal phalangeal joint Dr. Oviedo Family History: Family History (Last Reviewed 09/29/20 @ 12:32 by Jenny Knowles RN) Father CVA (cerebral vascular accident) Emphysema lung Mother Medical history unknown Social History: (Last Reviewed 09/29/20 @ 12:32 by Jenny Knowles RN) Social History: adopted: No Marital status: Single household members: none number of children: 1 number of grandchildren: 4 current occupational status: disabled current occupation: disabled Highest level of school completed/degree received: high school graduate Service: No Tobacco: Smoking Status: Never smoker Alcohol: alcohol intake: never Substance Use: substance use type: does not use Dietary Habits: caffeine: Yes caffeine comment: 2 Type: carbonated beverages Physical Exam - Physical Exam Narrative: RT foot exam= amputated great toe . redness,swelling,purulent discharge,no fluctuated , of 4th-5th toes . General Appearance: Present: wd/wn, alert, no apparent distress Head Exam: Present: normal inspection, no evidence of injury Eye Exam: Normal inspection: bilateral, PERRL: bilateral, EOMI: bilateral Ears, Nose, Throat: Present: normal ENT inspection, normal pharynx Neck: Present: normal inspection, nontender, supple, full range of motion Respiratory: Present: no respiratory distress, normal breath sounds, no accessory muscle use, chest nontender, lungs clear Cardiovascular/Chest: Present: regular rate, rhythm, no murmur, normal peripheral pulses Peripheral Pulses: N=norm/S=strong/W=weak/B=bound/A=absent: Radial (R): Normal, Radial (L): Normal, Femoral (R): Normal, Femoral (L): Normal, Dorsalis-pedis (R): Normal, Dorsalis-pedis (L): Normal Gastrointestinal/Abdominal: Present: normal bowel sounds, nontender, nondistended, soft, no organomegaly Back Exam: Present: normal inspection, normal range of motion, no CVA tenderness, no vertebral tenderness Neurological Exam: Present: alert, oriented, normal mood/affect Skin Exam: Present: normal color Lymphatic Exam: Present: no adenopathy Progress - Results and Orders Patient's Lab Results:: I have reviewed the patient's lab results. - Vital Signs Patient's Vital Signs:: I have reviewed the patient's vital signs. Vital Signs: Vital Signs 09/29/20 12:27 Temperature 36.7 C Pulse Rate 66 Respiratory Rate 16 Blood Pressure 127/50 O2 Sat by Pulse Oximetry 96 - EKG EKG #1 EKG: nonspecific ST T wave changes EKG read: Interp. by me - X-Ray X-Ray #1 X-Ray: foot Interpretation: Reviewed by me - Progress/Reassessment Chief Complaint: Foot Injury/Pain Progress:: Improved Plan - Plan Plan: Phone call= Patient condition and tests results discussed with dr Neal , plan= admit to [facility] for further management / IV antibiotic treatment . Departure Clinical Impression: Cellulitis of right foot, Diabetes mellitus - Departure Disposition: Still a patient Condition: Stable
[2020-09-29 13:09] LABS: Hematocrit 36.6 % (37.0-47.0); Hemoglobin 12.4 gm/dL (12.5-16.0); Mean Cell Volume 86.3 fl (78-100); Mean Corpuscular Hemoglobin 29.2 pg (27-31); Mean Corpuscular Hgb Conc 33.9 g/dl (32-36); Mean Platelet Volume 9.3 fl (8-12.5); Neutrophil # 10.5 K/mm3 (1.3-6.0); Neutrophil % 70.5 % (42-75.0); Platelet Count 281 K/mm3 (150-450); Red Blood Count 4.24 M/mm3 (4.2-5.4); Red Cell Distribution Width 14.9 % (11.5-14.0); White Blood Count 14.9 K/mm3 (4.0-10.5)
[2020-09-29 13:21] LABS: Prothrombin Time (Patient) 10.7 Seconds (9.1-10.7)
[2020-09-29 13:24] LABS: INR 1.03 INR (0.92-1.08); Partial Thrombolplastin Time 28.7 Seconds (24-32)
[2020-09-29] MEDS ORDERED: PIPERACILLIN SODIUM/TAZOBACTAM 3.375 GM in DEXTROSE 5 % IN WATER 100 ML IV ONE ×2 (13:25)
[2020-09-29] MEDS ORDERED: NORMAL SALINE 1,000 ML IV ONE ×2 (13:25→19:23)
[2020-09-29] MEDS ORDERED: VANCOMYCIN/WATER FOR INJ (PEG) 1 GM/200 ML BAG IV ONE (13:26)
[2020-09-29 13:30] LABS: ALT 13 U/L (19-67); AST 11 U/L (0-48); Albumin * 3.3 gm/dl (3.4-5.0); Alkaline Phosphatase * 82 U/L (50-170); Anion Gap 10.7 mmol/L (6.8-13.8); BUN/Creatinine Ratio 24.8 (9.0-21.6); Bilirubin, Total 0.4 mg/dL (0.0-1.1); Blood Urea Nitrogen 28 mg/dL (3-23); Ca. Corrected For Albumin 9.4 mg/dL (8.4-10.2); Calcium * 9.2 mg/dL (7.9-10.9); Carbon Dioxide 28.1 mmol/L (24-32.6); Chloride 103 mmol/L (97-106); Glucose * 101 mg/dL (70-110); Potassium 4.8 mmol/L (3.4-4.6); Sodium 137 mmol/L (132-142); Total Protein 8.4 gm/dL (6.2-8.2); Troponin I Less than 0.017 ng/mL (0.00-0.10)
[2020-09-29 13:33] LABS: CRP 16.4 mg/dL (0.0-0.9)
[2020-09-29 15:01] LABS: Hemoglobin A1C 6.8 % (3.80-5.60)
--- NOTE | 2020-09-29 19:19 | HP ---
Chief Complaint - Chief Complaint Date of Service: 09/29/20 Time of Service: 19:08 Chief Complaint: My right fourth toe hurts. History of Present Illness: 64-year-old female with past medical history of type 2 diabetes, hypertension, morbid obesity, hypothyroidism, and diabetic neuropathy was evaluated in the ER earlier today for pain and swelling on the right fourth and fifth digits of her foot for several days. The patient had an amputation of her right great toe due to abscess and cellulitis 8 months ago and now has recurrence in her fourth and fifth digits. She reports it all started when she noticed the nail on the pinky toe was growing towards her fourth toe cutting into the flesh and creating an opening she suspects that is with the infection started. She denied any fever chills but says last weekend she had exacerbation of her diabetic neuropathy that cause pain and discomfort in her hands and feet. The patient became alarmed enough of her symptoms to come to the ER for evaluation and once there lab work-up revealed leukocytosis with left shift and x-ray was significant for soft tissue edema, however bone involvement was not apparent. Decision to admit the patient to IV antibiotics to treat her celluli tis was made. Medical History (Last Reviewed 09/29/20 @ 12:32 by Jenny Knowles RN) Anxiety Asthma Deficient knowledge of caesarean delivery Depression Hypertension Type 2 diabetes mellitus Surgical History: Surgical History (Last Reviewed 09/29/20 @ 12:32 by Jenny Knowles RN) H/O dilation and curettage History of History of tonsillectomy S/P foot surgery Onset Date: ~01/27/20 OPERATION PERFORMED: Amputation right great toe at the metatarsal phalangeal joint Dr. [place] Family History: Family History (Last Reviewed 09/29/20 @ 12:32 by Jenny Knowles RN) Father CVA (cerebral vascular accident) Emphysema lung Mother Medical history unknown Social History: (Last Reviewed 09/29/20 @ 12:32 by Jenny Knowles RN) Social History: adopted: No Marital status: Single household members: none number of children: 1 number of grandchildren: 4 current occupational status: disabled current occupation: disabled Highest level of school completed/degree received: high school graduate Service: No Tobacco: Smoking Status: Never smoker Alcohol: alcohol intake: never Substance Use: substance use type: does not use Dietary Habits: caffeine: Yes caffeine comment: 2 Type: carbonated beverages Peds Patient Hx - Developmental: No Pertinent Hx Peds Patient Hx - Medical: No Pertinent Hx Peds Patient Hx - Cardiac/Respiratory: No Pertinent Hx Peds Patient Hx - Surgical: No Surgical History Patient History - Cancer: No Hx of Cancer Review Of Systems (GEN) - Review of Systems Generalized/Overall Review: Present: No Symptoms Reported EENTM: Present: No Symptoms Reported Respiratory: Present: No Symptoms Reported Cardiac: Present: No Symptoms Reported Abdominal: Present: No Symptoms Reported Genitourinary: Present: No Symptoms Reported Musculoskeletal: Present: Joint Pain - Fourth and fifth right toes discomfort Neurological: Present: No Symptoms Reported Skin: Present: Change in Color - Redness and swelling of the fourth right toe Endocrine: Present: No Symptoms Reported Immunizations: IMMUNIZATION HX Immunizations Up to Date Yes History of Influenza Vaccine No Hx Pneumococcal Vaccination No Allergies/Adverse Reactions: Allergies Allergy/AdvReac Type Severity Reaction Status Date / Time codeine [Codeine] Allergy Severe Itching Verified 09/29/20 12:31 latex Allergy Severe Itching Verified 09/29/20 12:31 Home Medications: HOME MEDICATIONS albuterol sulfate 90 mcg/actuation breath activated powder inhaler 4 inh IH Q4H PRN 04/02/19 [Last Taken Unknown] Fluticasone Propionate [Flonase] 1 spray NS BID 01/25/20 [Last Taken Unknown] Levothyroxine Sodium [Synthroid] 75 mcg PO DAILY 01/25/20 [Last Taken Unknown] Losartan Potassium 50 mg PO DAILY 01/25/20 [Last Taken Unknown] Durable Medical Equipment See Rx Instructions .ROUTE .MEDSUPPLY #1 ea 03/03/20 [Last Taken Unknown] gabapentin 300 mg capsule 300 mg PO TID cap 06/03/20 [Last Taken Unknown] Exam - Exam Vital Signs: Vital Signs - Last Taken Temp 36.7 C 09/29/20 16:45 Pulse 73 09/29/20 16:45 Resp 15 09/29/20 16:45 BP 114/69 09/29/20 16:45 Pulse Ox 97 09/29/20 16:45 Constitutional: Present: Alert, Oriented x3, Cooperative, Well developed, Well nourished, No distress, Morbidly obese ENT Exam: Present: normal ENT inspection, hearing grossly normal Eye Exam: bilateral eye: normal inspection, PERRL, EOMI Neck: Present: non-tender, full range of motion, supple, normal inspection, trachea midline Back Exam: Present: normal inspection, no CVA tenderness, no vertebral tenderness Breasts: Present: Exam deferred Respiratory: Present: chest non-tender, lungs clear, normal breath sounds, no respiratory distress, no accessory muscle use Cardiovascular/Chest: Present: normal peripheral pulses, regular rate, rhythm, no chest tenderness, no edema, no gallop, no JVD, no murmur, no rub Peripheral Pulses: dorsalis-pedis (R): 1+, dorsalis-pedis (L): 1+ Abdomen: Present: Normal bowel sounds, soft, nontender, nondistended, no rebound tenderness, no hepatospenomegaly, no masses, obese /Rectal: Present: Exam deferred Extremity: Present: no calf tenderness, normal capillary refill, pelvis stable, pedal edema - Right pedal edema 2+, other - Erythema and edema of right fourth toe Skin Exam: Present: other - Erythema warmth and tenderness to palpation of fourth right toe Lymphatic: Present: no adenopathy Neurologic: Present: e commerce director II-XII nml as tested, normal cerebellar test, no motor/sensory deficits, alert, normal mood/affect, oriented x 3 Appearance: Present: appropriate appearance, appropriate insight, neat, no memory impairment Eye contact: Present: cooperative, good eye contact, normal speech Thoughts: Present: normal thought pattern, no apparent hallucination Diagnostic Studies: Abnormal Lab Results 09/29/20 09/29/20 09/29/20 Range/Units 13:05 13:05 13:05 WBC 14.9 H (4.0-10.5) K/mm3 Hgb 12.4 L (12.5-16.0) gm/dL Hct 36.6 L (37.0-47.0) % RDW 14.9 H (11.5-14.0) % Immature Gran # (Auto) 0.06 H (0.000-0.0310) K/mm3 Lymphocytes % 17.1 L (20-51) % Eosinophils % 3.8 H (0.0-3.0) % Basophils % 1.2 H (0.0-1.0) % Neutrophils # 10.5 H (1.3-6.0) K/mm3 Absolute Basophils 0.2 H (0.0-0.1) k/mm3 Potassium 4.8 H D (3.4-4.6) mmol/L BUN 28 H D (3-23) mg/dL Est GFR (Non-Af Amer) 52 L (60-130) mL/min BUN/Creatinine Ratio 24.8 H (9.0-21.6) Hemoglobin A1c 6.8 H (3.80-5.60) % ALT 13 L (19-67) U/L C-Reactive Prot, Quant 16.4 H (0.0-0.9) mg/dL Total Protein 8.4 H (6.2-8.2) gm/dL Albumin 3.3 L (3.4-5.0) gm/dl Laboratory Results WBC 14.9 K/mm3 (4.0-10.5) H 09/29/20 13:05 RBC 4.24 M/mm3 (4.2-5.4) 09/29/20 13:05 Hgb 12.4 gm/dL (12.5-16.0) L 09/29/20 13:05 Hct 36.6 % (37.0-47.0) L 09/29/20 13:05 MCV 86.3 fl (78-100) 09/29/20 13:05 MCH 29.2 pg (27-31) 09/29/20 13:05 MCHC 33.9 g/dl (32-36) 09/29/20 13:05 RDW 14.9 % (11.5-14.0) H 09/29/20 13:05 Plt Count 281 K/mm3 (150-450) 09/29/20 13:05 MPV 9.3 fl (8-12.5) 09/29/20 13:05 Immature Gran % (Auto) 0.40 % (0.001-0.429) 09/29/20 13:05 Immature Gran # (Auto) 0.06 K/mm3 (0.000-0.0310) H 09/29/20 13:05 Neutrophils % 70.5 % (42-75.0) 09/29/20 13:05 Lymphocytes % 17.1 % (20-51) L 09/29/20 13:05 Monocytes % 7.0 % (0.0-9) 09/29/20 13:05 Eosinophils % 3.8 % (0.0-3.0) H 09/29/20 13:05 Basophils % 1.2 % (0.0-1.0) H 09/29/20 13:05 Nucleated RBC % 0.0 k/mm3 (0-1) 09/29/20 13:05 Neutrophils # 10.5 K/mm3 (1.3-6.0) H 09/29/20 13:05 Lymphocytes # 2.55 k/mm3 (1.5-3.5) 09/29/20 13:05 Monocytes # 1.0 k/mm3 (0.0-1.0) 09/29/20 13:05 Eosinophils # 0.6 k/mm3 (0.0-0.7) 09/29/20 13:05 Absolute Basophils 0.2 k/mm3 (0.0-0.1) H 09/29/20 13:05 PT 10.7 Seconds (9.1-10.7) 09/29/20 13:05 INR (Anticoag Therapy) 1.03 INR (0.92-1.08) 09/29/20 13:05 PTT ([place]) 28.7 Seconds (24-32) 09/29/20 13:05 Sodium 137 mmol/L (132-142) 09/29/20 13:05 Plasma Sodium 137 mmol/L (130-142) 09/29/20 13:05 Potassium 4.8 mmol/L (3.4-4.6) H D 09/29/20 13:05 Chloride 103 mmol/L (97-106) 09/29/20 13:05 Carbon Dioxide 28.1 mmol/L (24-32.6) 09/29/20 13:05 Anion Gap 10.7 mmol/L (6.8-13.8) 09/29/20 13:05 BUN 28 mg/dL (3-23) H D 09/29/20 13:05 Creatinine 1.13 mg/dL (0.4-1.4) 09/29/20 13:05 Est GFR (Non-Af Amer) 52 mL/min (60-130) L 09/29/20 13:05 BUN/Creatinine Ratio 24.8 (9.0-21.6) H 09/29/20 13:05 Random Glucose 101 mg/dL (70-110) 09/29/20 13:05 Mean Blood Glucose 148 mg/dL 09/29/20 13:05 Hemoglobin A1c 6.8 % (3.80-5.60) H 09/29/20 13:05 Lactic Acid, Venous 1.8 mmol/L (0.4-2.0) 09/29/20 13:05 Calcium 9.2 mg/dL (7.9-10.9) 09/29/20 13:05 Calcium Adj for Albumin 9.4 mg/dL (8.4-10.2) 09/29/20 13:05 Total Bilirubin 0.4 mg/dL (0.0-1.1) 09/29/20 13:05 AST 11 U/L (0-48) 09/29/20 13:05 ALT 13 U/L (19-67) L 09/29/20 13:05 Alkaline Phosphatase 82 U/L (50-170) 09/29/20 13:05 Troponin I Less than 0.017 ng/mL (0.00-0.10) 09/29/20 13:05 C-Reactive Prot, Quant 16.4 mg/dL (0.0-0.9) H 09/29/20 13:05 Total Protein 8.4 gm/dL (6.2-8.2) H 09/29/20 13:05 Albumin 3.3 gm/dl (3.4-5.0) L 09/29/20 13:05 SARS-CoV-2 (PCR) Not detected (NotDetected) 09/29/20 15:00 Assessment/Plan - Narrative Narrative: Patient was evaluated medical chart was reviewed and decision to admit for cellulitis of fourth and fifth right toes was made. Patient is currently receiving IV antibiotics without any issues and appears comfortable. We will repeat labs tomorrow morning for reevaluation, in the meantime she will resume all of her routine meds during the hospitalization. - Assessment/Plan (1) Cellulitis of fourth toe of right foot Problem: Acute (2) Diabetes mellitus Problem: Chronic Qualifiers: Diabetes mellitus type: type 2 (3) Diabetic neuropathy associated with type 2 diabetes mellitus Problem: Acute (4) HTN (hypertension) Problem: Chronic (5) Hypothyroidism (acquired) Problem: Chronic (6) Morbid obesity Problem: Acute
[2020-09-29] MEDS ORDERED: ALBUTEROL SULFATE 60 PUFF INHALER IH PRN (19:27)
[2020-09-29] MEDS: GABAPENTIN 300 MG CAPSULE PO SCH (20:01)
[2020-09-29] MEDS: ENOXAPARIN SODIUM 40 MG/0.4 ML SYRG SC SCH (20:01)
[2020-09-29] MEDS: FLUTICASONE PROPIONATE 120 SPRAY INHALER NS SCH (20:02)
[2020-09-29] MEDS: PIPERACILLIN SODIUM/TAZOBACTAM 3.375 GM in DEXTROSE 5 % IN WATER 100 ML IV SCH ×2 (21:36)
[2020-09-30] MEDS: PIPERACILLIN SODIUM/TAZOBACTAM 3.375 GM in DEXTROSE 5 % IN WATER 100 ML IV SCH ×4 (05:10→13:42)
[2020-09-30 06:34] LABS: Hematocrit 31.8 % (37.0-47.0); Hemoglobin 10.6 gm/dL (12.5-16.0); Mean Cell Volume 86.9 fl (78-100); Mean Corpuscular Hgb Conc 33.3 g/dl (32-36); Mean Platelet Volume 9.4 fl (8-12.5); Neutrophil # 5.4 K/mm3 (1.3-6.0); Neutrophil % 61.6 % (42-75.0); Platelet Count 235 K/mm3 (150-450); Red Blood Count 3.66 M/mm3 (4.2-5.4); Red Cell Distribution Width 14.7 % (11.5-14.0); White Blood Count 8.7 K/mm3 (4.0-10.5)
[2020-09-30 06:52] LABS: Albumin * 2.6 gm/dl (3.4-5.0); Anion Gap 10.6 mmol/L (6.8-13.8); BUN/Creatinine Ratio 22.9 (9.0-21.6); Bilirubin, Total 0.5 mg/dL (0.0-1.1); Ca. Corrected For Albumin 9.1 mg/dL (8.4-10.2); Calcium * 8.3 mg/dL (7.9-10.9); Carbon Dioxide 24.3 mmol/L (24-32.6); Potassium 3.9 mmol/L (3.4-4.6)
[2020-09-30] MEDS: ACETAMINOPHEN 325 MG TABLET PO PRN (07:05)
[2020-09-30] MEDS: LEVOTHYROXINE SODIUM 75 MCG TABLET PO SCH (07:05)
[2020-09-30] MEDS: PANTOPRAZOLE SODIUM 20 MG TABLET.DR PO SCH (07:05)
[2020-09-30] MEDS: FLUTICASONE PROPIONATE 120 SPRAY INHALER NS SCH ×2 (08:30→20:24)
[2020-09-30] MEDS: GABAPENTIN 300 MG CAPSULE PO SCH ×3 (08:31→16:34)
[2020-09-30] MEDS: LOSARTAN POTASSIUM 50 MG TABLET PO SCH (08:31)
[2020-09-30] MEDS ORDERED: FLU VACC QS2020-21(6MOS UP)/PF 60 MCG/0.5 ML SYRINGE IM ONE (09:00)
--- NOTE | 2020-09-30 10:11 | PN ---
Subjective - Date and Time Seen Date: 09/30/20 Time: 10:03 Subjective Narrative: I feel better, less pain in my toe. Objective Objective Narrative: 64-year-old female admitted for cellulitis of fourth and fifth digits of her right foot was evaluated at bedside and was found to be afebrile and in no acute distress. This morning the patient has shown significant improvement, the involved digits are less erythematous and tender and warmth has resolved. Labs this morning also revealed resolution of her leukocytosis and response to IV antibiotics. However given the appearance of the cellulitis decision to order an MRI was made to rule out osteomyelitis, we will follow-up with the results to determine the next steps. In the meantime, preliminary culture results revealed growth of Streptococcus G which is most likely the same organism that caused her previous infections so we will follow-up with final susceptibility report in order to determine best antibiotics. - Review of Systems Generalized/Overall Review: Reports: No Symptoms Reported EENTM: Reports: No Symptoms Reported Respiratory: Reports: No Symptoms Reported Cardiac: Reports: No Symptoms Reported Abdominal: Reports: No Symptoms Reported Genitourinary Symptoms: Reports: No Symptoms Reported Musculoskeletal Complaints: Reports: No Symptoms Reported Neurological: Reports: No Symptoms Reported Skin: Reports: No Symptoms Reported Endocrine: Reports: No Symptoms Reported - Vitals Vitals: Last Vital Signs Temp 37.4 C 09/30/20 06:15 Pulse 58 L 09/30/20 08:31 Resp 18 09/30/20 06:15 BP 121/67 09/30/20 08:31 Pulse Ox 96 09/30/20 06:15 - Abnormal Lab Findings Abnormal Lab Findings: Abnormal Lab Results 09/29/20 09/29/20 09/29/20 Range/Units 13:05 13:05 13:05 WBC 14.9 H (4.0-10.5) K/mm3 RBC (4.2-5.4) M/mm3 Hgb 12.4 L (12.5-16.0) gm/dL Hct 36.6 L (37.0-47.0) % RDW 14.9 H (11.5-14.0) % Immature Gran # (Auto) 0.06 H (0.000-0.0310) K/mm3 Lymphocytes % 17.1 L (20-51) % Eosinophils % 3.8 H (0.0-3.0) % Basophils % 1.2 H (0.0-1.0) % Neutrophils # 10.5 H (1.3-6.0) K/mm3 Absolute Basophils 0.2 H (0.0-0.1) k/mm3 Potassium 4.8 H D (3.4-4.6) mmol/L Chloride (97-106) mmol/L BUN 28 H D (3-23) mg/dL Est GFR (Non-Af Amer) 52 L (60-130) mL/min BUN/Creatinine Ratio 24.8 H (9.0-21.6) Random Glucose (70-110) mg/dL Hemoglobin A1c 6.8 H (3.80-5.60) % ALT 13 L (19-67) U/L C-Reactive Prot, Quant 16.4 H (0.0-0.9) mg/dL Total Protein 8.4 H (6.2-8.2) gm/dL Albumin 3.3 L (3.4-5.0) gm/dl 09/30/20 09/30/20 Range/Units 06:17 06:17 WBC (4.0-10.5) K/mm3 RBC 3.66 L (4.2-5.4) M/mm3 Hgb 10.6 L (12.5-16.0) gm/dL Hct 31.8 L (37.0-47.0) % RDW 14.7 H (11.5-14.0) % Immature Gran # (Auto) (0.000-0.0310) K/mm3 Lymphocytes % (20-51) % Eosinophils % 6.0 H (0.0-3.0) % Basophils % (0.0-1.0) % Neutrophils # (1.3-6.0) K/mm3 Absolute Basophils (0.0-0.1) k/mm3 Potassium (3.4-4.6) mmol/L Chloride 108 H (97-106) mmol/L BUN (3-23) mg/dL Est GFR (Non-Af Amer) (60-130) mL/min BUN/Creatinine Ratio 22.9 H (9.0-21.6) Random Glucose 119 H (70-110) mg/dL Hemoglobin A1c (3.80-5.60) % ALT 12 L (19-67) U/L C-Reactive Prot, Quant (0.0-0.9) mg/dL Total Protein (6.2-8.2) gm/dL Albumin 2.6 L (3.4-5.0) gm/dl - Exam Constitutional: Present: Alert, Oriented x3, Cooperative, Well developed, Well nourished, No distress ENT Exam: Present: normal ENT inspection, hearing grossly normal, pharynx normal, TMs normal Neck: Present: non-tender, full range of motion, supple, normal inspection, trachea midline Breasts: Present: Exam deferred, Nontender Respiratory: Present: chest non-tender, lungs clear, normal breath sounds, no respiratory distress, no accessory muscle use Cardiovascular/Chest: Present: normal peripheral pulses, regular rate, rhythm, no chest tenderness, no edema, no gallop, no JVD, no murmur, no rub Abdomen: Present: Normal bowel sounds, soft, nontender, nondistended, no rebound tenderness, no hepatospenomegaly, no masses, obese /Rectal: Present: Exam deferred Extremity: Present: normal range of motion, non-tender, no calf tenderness, normal capillary refill, pelvis stable, pedal edema, other - Erythema of fourth digit with extension to fifth digit. Lymphatic: Present: no adenopathy Neurologic: Present: meteorologist liaison II-XII nml as tested, normal cerebellar test, no motor/sensory deficits, alert, normal mood/affect, oriented x 3 Appearance: Present: appropriate appearance, appropriate insight, neat, no memory impairment Eye contact: Present: cooperative, good eye contact, normal speech Thoughts: Present: normal thought pattern, no apparent hallucination Assessment/Plan Plan Narrative: We will follow-up MRI results as stated before, in the meantime patient will continue receiving IV antibiotics. - Problems/Diagnosis (1) Cellulitis of fourth toe of right foot Problem: Acute (2) Diabetes mellitus Problem: Chronic Qualifiers: Diabetes mellitus type: type 2 (3) Diabetic neuropathy associated with type 2 diabetes mellitus Problem: Acute (4) HTN (hypertension) Problem: Chronic (5) Hypothyroidism (acquired) Problem: Chronic (6) Morbid obesity Problem: Acute
[2020-09-30] MEDS ORDERED: VANCOMYCIN HCL 1 GM in DEXTROSE 5 % IN WATER 250 ML IV SCH ×2 (14:00)
--- NOTE | 2020-09-30 17:05 | CONS ---
- Reason for consultation (1) Osteomyelitis of right foot Date of Service: 09/30/20 (2) Cellulitis of fourth toe of right foot Date of Service: 09/30/20 HPI - General Narrative: Patient is seen today resting in bed. She is being seen for cellulitis of her right 4th and 5th toes, as well as concerns of osteomyelitis in the foot following MRI exam. She states that approximately 1 week ago, her toenail on her 5th toe rubbed a sore on her 4th toe. It has since become progressively more red and swollen, eventually extending in to her foot. She denies any pain secondary to diabetic neuropathy. She presented to the ED with concerns of increasing redness and swelling and was admitted for IV antibiotic treatment. Xrays were obtained, however did not show any bone destruction to indicate bone infection. She had, however, developed fractures to her distal 2nd metatarsal since her last xray in January,. Due to the level of redness in the toe, suspicion remained for bone infection so MRI was ordered. With concerns of bone infection on MRI, I was consulted for surgical management. 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 States that this healed without incident. Denies any current nausea, vomiting, fevers, or chills. Appears to be having a positive response to current antibiotics with WBC count returning to normal level. She denies any other concerns today. Source: patient Exam Limitations: no limitations - History of Present Illness Timing/Duration: 1 week Allergies/Adverse Reactions: Allergies codeine [Codeine] Allergy (Severe, Verified 09/29/20 12:31) Itching latex Allergy (Severe, Verified 09/29/20 12:31) Itching Home Medications: Home Medications Medication Instructions Recorded Last Taken albuterol sulfate 90 mcg/actuation 4 inh IH Q4H PRN 04/02/19 Unknown breath activated powder inhaler Fluticasone Propionate [Flonase] 1 spray NS BID 01/25/20 Unknown Levothyroxine Sodium [Synthroid] 75 mcg PO DAILY 01/25/20 Unknown Losartan Potassium 50 mg PO DAILY 01/25/20 Unknown Durable Medical Equipment See Rx Instructions .ROUTE 03/03/20 Unknown .MEDSUPPLY #1 ea gabapentin 300 mg capsule 300 mg PO TID cap 06/03/20 Unknown Procedures Detachment at Right 1st Toe, Complete, Open Approach (01/26/20) Medications - Medications Current Medications: Current Medications Acetaminophen (Acetaminophen 325 Mg Tablet) 650 mg PO Q4H PRN PRN Reason: Mild pain (pain scale 1-3) Stop: 10/29/20 18:57 Last Admin: 09/30/20 07:05 Dose: 650 mg Documented by: Enoxaparin Sodium (Enoxaparin Sodium 40 Mg/0.4 Ml Syrg) 40 mg SC Q24H [facility] Stop: 10/29/20 19:01 Last Admin: 09/29/20 20:01 Dose: 40 mg Documented by: Fluticasone Propionate (Fluticasone Propionate 120 [place] Inhaler) 1 spray NS BID [facility] Stop: 10/29/20 21:01 Last Admin: 09/30/20 08:30 Dose: 120 spray Documented by: Gabapentin (Gabapentin 300 Mg Capsule) 300 mg PO TID [facility] Stop: 10/29/20 19:01 Last Admin: 09/30/20 16:34 Dose: 300 mg Documented by: Ceftriaxone Sodium 1,000 mg/ (Dextrose/Water) 100 mls @ 200 mls/hr IV Q24H [facility] Stop: 10/30/20 16:01 Last Admin: 09/30/20 16:34 Dose: 200 mls/hr Documented by: Levothyroxine Sodium (Levothyroxine Sodium 75 Mcg Tablet) 75 mcg PO QDAC [facility] Stop: 10/30/20 07:01 Last Admin: 09/30/20 07:05 Dose: 75 mcg Documented by: Losartan Potassium (Losartan Potassium 50 Mg Tablet) 50 mg PO DAILY [facility] Stop: 10/30/20 09:01 Last Admin: 09/30/20 08:31 Dose: 50 mg Documented by: Pantoprazole Sodium (Pantoprazole Sodium 20 Mg Tablet.) 20 mg PO DAILY@0700 [facility] Stop: 10/30/20 07:01 Last Admin: 09/30/20 07:05 Dose: 20 mg Documented by: Review of Systems - Review of Systems Generalized/Overall Review: Absent: Chills, Fever Respiratory: Absent: Shortness of Breath Cardiac: Present: Edema Abdominal: Absent: Nausea, Vomiting, Diarrhea Musculoskeletal: Present: Other - right great toe amputation Neurological: Present: Numbness Skin: Present: Other - erythema right 4th/5th toes; ulceration lateral 4th toe right foot Physical Examination - Exam Narrative: Ulceration to lateral right 4th toe measuring 0.4 x 0.4 x 0.2 cm. No tunneling or undermining. Loss of tissue to full thickness with exposure of subcutaneous fat layer. Base mostly yellow, fibrotic slough tissue. Surrounding tissue erythematous and edematous. There is a moderate amount of sero-purulent drainage, no malodor. Bone can be palpated through the ulceration. Erythema present in the 4th and 5th toes that extends just to the level of the MtPJ on exam today. Toes are warm to touch. Foot is edematous. MRI reviewed, concerning for osteomyelitis of most of the 2nd and 3rd metatarsals, as well as the distal 4th metatarsal and entire 4th toe. Xrays from January 2020 compared to recent xrays from admission. She has developed fracturing of the distal 2nd metatarsal which concerns me for possible pathologic fracture given MRI findings concerning for bone infection. There is also widening of the 2nd and 3rd MtPJ concerning for possible septic arthritis. Vital Signs: Vital Signs - Last Taken Temp 36.3 C 09/30/20 14:30 Pulse 58 L 09/30/20 10:00 Resp 16 09/30/20 14:30 BP 130/57 09/30/20 14:30 Pulse Ox 99 09/30/20 14:30 O2 Oxygen Delivery Method Room Air Constitutional: Present: Alert, Oriented x3, Cooperative Peripheral Pulses: dorsalis-pedis (R): 2+ - PT pulse 2+; CRFT brisk to toes Extremity: Present: pedal edema Skin Exam: Present: other - see details above Neurologic: Present: sensory deficit Appearance: Present: appropriate appearance Eye contact: Present: cooperative - Results and Findings: Lab/Microbiology results last 24 hrs: Abnormal/Pending Laboratory Last 24 HRS 09/30/20 09/30/20 06:17 06:17 RBC 3.66 L Hgb 10.6 L Hct 31.8 L RDW 14.7 H Eosinophils % 6.0 H Chloride 108 H BUN/Creatinine Ratio 22.9 H Random Glucose 119 H ALT 12 L Albumin 2.6 L Culture 09/29/20 20:35 - Final Nares MRSA Negative 09/29/20 13:56 Blood Culture - Preliminary Blood NO GROWTH 24 HOURS 09/29/20 12:45 Blood Culture - Preliminary Blood NO GROWTH 24 HOURS 09/29/20 20:35 Miscellaneous Culture - Preliminary Foot - Right Group G Streptococcus - Assessments/Findings (1) Osteomyelitis of right foot Diagnosis(s): Discussed MRI findings with patient and treatment options moving forward. Discussed most conservative care consisting of long-term IV antibiotics. Advised patient that IV antibiotics would be minimum 6 to 8 weeks and there is no guarantee that this will completely clear out her infection. There is still a chance that she may require some sort of surgical intervention in the future. Next option discussed was a partial fourth ray amputation with bone biopsy of the second and third metatarsals to assess for bone infection. Should her second and third metatarsals come back positive for infection she would need to decide whether she wanted to try 6 to 8 weeks of IV antibiotics to try to clear out this infection or go back into surgery to remove the remaining infected bone. We also discussed partial second third and fourth ray amputations however my concerns are that this would add undue pressure to her first and fifth rays which may lead to stress fracture or ulceration that may become infected and potentially require return to surgery for removal of any infected bone. The next treatment option that was discussed was a transmetatarsal amputation, which would be my current recommendation for surgical treatment of this foot given the concerns for osteomyelitis through the central 3 rays. Along with this amputation I would likely do an Achilles tendon lengthening to help reduce any pressure over the amputation stump to help reduce her risk of possible future ulceration. While there are no guarantees that she may not develop ulceration or infection in the future, this would be my current recommended treatment plan given her current exam findings. She could also consider a below-knee amputation however I feel this may be overly aggressive given the appearance of her foot as well as MRI results. After much discussion patient states that she is on board for aggressive treatment. She would like to proceed with transmetatarsal amputation. She has already eaten today so we will not be able to add the surgery on today. I am unavailable to perform the surgery tomorrow, and I have discussed that the earliest I would be able to perform the surgery would be this coming Monday afternoon. This would allow more antibiotic treatment into her system to help further reduce her risk of infection following this amputation. She is in agreement with this plan. I will speak with the OR staff tomorrow and plan to add the surgery on for 10/02/2020. She will need to be n.p.o. at midnight on night. Orders will be written to obtain consent for transmetatarsal amputation of the right foot with possible Achilles tendon lengthening. All risk and benefits of surgery are discussed with the patient in great detail. Anesthesia and postoperative care are also discussed with the patient. No guarantees are given or implied. Patient is in agreement with proceeding forward with surgery. I would prefer that she stay 1 night in the hospital following the surgery to be sure that pain is well controlled. I have discussed this plan with Dr. Neal, and she will also discuss this with the patient tomorrow. Problem: Acute Qualifiers: Osteomyelitis type: other acute Qualified Code(s): M86.171 - Other acute osteomyelitis, right ankle and foot (2) Cellulitis of fourth toe of right foot Diagnosis(s): Will continue on IV antibiotics at this time. Ulceration to the 4th toe is dressed today with dry gauze and tape. This dressing is to be changed daily. Wash foot well with soap and water and pat dry with clean towel prior to applying new dressings. Surgical care as discussed above. Problem: Acute
[2020-09-30] MEDS: ENOXAPARIN SODIUM 40 MG/0.4 ML SYRG SC SCH (20:23)
[2020-10-01] MEDS: ACETAMINOPHEN 325 MG TABLET PO PRN (02:31)
[2020-10-01] MEDS: LOSARTAN POTASSIUM 50 MG TABLET PO SCH (08:00)
[2020-10-01] MEDS: PANTOPRAZOLE SODIUM 20 MG TABLET.DR PO SCH (08:02)
[2020-10-01] MEDS: GABAPENTIN 300 MG CAPSULE PO SCH ×3 (08:02→17:05)
[2020-10-01] MEDS: LEVOTHYROXINE SODIUM 75 MCG TABLET PO SCH (08:02)
[2020-10-01] MEDS: FLUTICASONE PROPIONATE 120 SPRAY INHALER NS SCH ×2 (08:03→20:17)
[2020-10-01] MEDS ORDERED: NORMAL SALINE 1,000 ML IV ONE (09:04)
--- NOTE | 2020-10-01 09:18 | PN ---
Subjective - Date and Time Seen Date: 10/01/20 Time: 09:09 Subjective Narrative: I feel better, less pain in my toe. Objective Objective Narrative: 64-year-old female admitted for osteomyelitis of right foot with frac tures of second and third digits was evaluated at bedside this morning was found to be afebrile and in no acute distress. The patient was evaluated by the sleeve turner yesterday who was consulted after MRI results confirmed osteomyelitis of 2 of the digits of the right foot and fractures of the remaining toes. It was agreed upon that the patient will undergo a transmetatarsal amputation of the right foot given the different issues in the involved member. This morning had a thorough discussion at bedside with the patient and she appeared to be in good spirits and has made peace with her diagnosis and plan of care. She reports feeling ready for her surgery and it was explained to her that she will be n.p.o. after midnight. Normal saline hydration has been ordered to keep her hydrated, and in the meantime we will keep her on IV antibiotics. The patient's leukocytosis has resolved since yesterday and microbiology culture revealed that she is growing a Streptococcus group G therefore her IV antibiotics was optimized for the best coverage for infection. She denied any other concerns and says she is feeling relatively well, she was also encouraged to get up and walk if she is able to bear weight without pain during the hospitalization. We will follow up with her tomorrow. - Review of Systems Generalized/Overall Review: Reports: No Symptoms Reported EENTM: Reports: No Symptoms Reported Respiratory: Reports: No Symptoms Reported Cardiac: Reports: No Symptoms Reported Abdominal: Reports: No Symptoms Reported Genitourinary Symptoms: Reports: No Symptoms Reported Musculoskeletal Complaints: Reports: Joint Pain Neurological: Reports: No Symptoms Reported Skin: Reports: No Symptoms Reported Endocrine: Reports: No Symptoms Reported - Vitals Vitals: Last Vital Signs Temp 36.8 C 10/01/20 06:43 Pulse 55 L 10/01/20 08:00 Resp 14 10/01/20 06:43 BP 148/66 10/01/20 08:00 Pulse Ox 97 10/01/20 06:43 - Exam Constitutional: Present: Alert, Oriented x3, Cooperative, Well developed, Well nourished, No distress, Morbidly obese ENT Exam: Present: normal ENT inspection, hearing grossly normal, pharynx normal, TMs normal Neck: Present: non-tender, full range of motion, supple, normal inspection, trachea midline Breasts: Present: Exam deferred, Nontender Respiratory: Present: chest non-tender, normal breath sounds, no respiratory distress, no accessory muscle use, wheezing Cardiovascular/Chest: Present: normal peripheral pulses, regular rate, rhythm, no chest tenderness, no edema, no gallop, no JVD, no murmur, no rub Abdomen: Present: Normal bowel sounds, soft, nontender, nondistended, no rebound tenderness, no hepatospenomegaly, no masses, obese /Rectal: Present: Exam deferred Extremity: Present: normal range of motion, non-tender, normal inspection, no pedal edema, no calf tenderness, normal capillary refill, pelvis stable Skin Exam: Present: normal color, warm/dry, no cyanosis Lymphatic: Present: no adenopathy Neurologic: Present: 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 We will follow-up with her tomorrow sometime during the day before and after the procedure. - Problems/Diagnosis (1) Cellulitis of fourth toe of right foot Problem: Acute (2) Diabetes mellitus Problem: Chronic Qualifiers: Diabetes mellitus type: type 2 (3) Diabetic neuropathy associated with type 2 diabetes mellitus Problem: Acute (4) HTN (hypertension) Problem: Chronic (5) Hypothyroidism (acquired) Problem: Chronic (6) Morbid obesity Problem: Chronic (7) Acute osteomyelitis of phalanx of right foot Problem: Acute (8) Chronic fracture Problem: Chronic
--- NOTE | 2020-10-01 16:21 | PN ---
Subjective - Date and Time Seen Date: 10/01/20 Time: 10:40 Subjective Narrative: Patient is seen today sitting up at bedside. Dressing intact to right foot. States she is feeling well today. She denies having any questions in regards to her anticipated surgery tomorrow. She is ready to have it done so she can begin the recovery process. Objective - Review of Systems Generalized/Overall Review: Denies: Chills, Fever, Fatigue Respiratory: Denies: Shortness of Breath Cardiac: Reports: Edema Abdominal: Denies: Nausea, Vomiting, Diarrhea Musculoskeletal Complaints: Reports: Other - right great toe amputation Neurological: Reports: Numbness Skin: Reports: Other - ulceration right 4th toe; erythema right 4th/5th toes - Vitals Vitals: Last Vital Signs Temp 36.9 C 10/01/20 14:00 Pulse 55 L 10/01/20 14:00 Resp 18 10/01/20 14:00 BP 178/78 H 10/01/20 15:12 Pulse Ox 55 L 10/01/20 14:00 - Exam Constitutional: Present: Alert, Oriented x3, Cooperative, No distress Extremity: Present: pedal edema, other - right great toe amputation Skin Exam: Present: other - appearance of foot unchanged since visit yesterday - still with erythema about the 4th/5th toes, ulceration unchanged in size, still with drainage present. Neurologic: Present: sensory deficit Appearance: Present: appropriate appearance Assessment/Plan Plan Narrative: Patient is doing well and is in good spirits. She remains afebrile, no nausea, no pain. Appearance of her foot relatively unchanged since visit yesterday. She is ready to proceed with amputation tomorrow. Patient thoroughly educated about proposed procedure, anesthesia and postoperative care. No guarantees given or implied. Pt wishes to proceed. Orders have been written to obtain consent for transmetatarsal amputation of the right foot with possible Achilles tendon lengthening. This is planned for tomorrow, 10/02/20, in the afternoon. She will be NPO after midnight tonight. She denies any questions regarding her surgery or aftercare. She is ready to proceed. Will plan to remain inpatient tomorrow night to be sure pain is well controlled, anticipate discharge home on Monday. - Problems/Diagnosis (1) Osteomyelitis of right foot Problem: Acute Qualifiers: Osteomyelitis type: other acute Qualified Code(s): M86.171 - Other acute osteomyelitis, right ankle and foot (2) Cellulitis of fourth toe of right foot Problem: Acute
[2020-10-01] MEDS: amLODIPine BESYLATE 10 MG TABLET PO SCH (17:58)
[2020-10-01] MEDS: ENOXAPARIN SODIUM 40 MG/0.4 ML SYRG SC SCH (20:17)
[2020-10-02] MEDS ORDERED: LIDOCAINE HCL 50 ML VIAL IJ ONE ×2 (06:00→13:22)
[2020-10-02] MEDS ORDERED: BUPIVACAINE HCL 50 ML VIAL IJ ONE ×3 (06:00→13:20)
[2020-10-02] MEDS: amLODIPine BESYLATE 10 MG TABLET PO SCH (08:24)
[2020-10-02] MEDS: LOSARTAN POTASSIUM 50 MG TABLET PO SCH (08:25)
[2020-10-02] MEDS: GABAPENTIN 300 MG CAPSULE PO SCH ×3 (08:26→16:09)
[2020-10-02] MEDS: FLUTICASONE PROPIONATE 120 SPRAY INHALER NS SCH ×2 (08:26→21:07)
[2020-10-02] MEDS: PANTOPRAZOLE SODIUM 20 MG TABLET.DR PO SCH (08:26)
[2020-10-02] MEDS: LEVOTHYROXINE SODIUM 75 MCG TABLET PO SCH (08:26)
[2020-10-02] MEDS ORDERED: ONDANSETRON HCL/PF 2 MG/ML VIAL ONE (11:17)
[2020-10-02] MEDS ORDERED: fentaNYL CITRATE/PF 50 MCG/ML AMPUL ONE (11:17)
[2020-10-02] MEDS ORDERED: LIDOCAINE HCL 20 ML VIAL ONE (11:17)
[2020-10-02] MEDS ORDERED: PROPOFOL VIAL IV ONE (11:17)
--- NOTE | 2020-10-02 11:21 | PN ---
Subjective - Date and Time Seen Date: 10/02/20 Time: 11:17 Subjective Narrative: I feel better, less pain in my toe. Objective Objective Narrative: 64-year-old female admitted for osteomyelitis of right foot with frac tures of second and third digits was evaluated at bedside this morning was found to be afebrile and in no acute distress. The patient prepared to go to the OR and appears to be in good spirits. She maintained stable vitals and denies any symptoms or concerns at this time. The patient will be undergoing a transmetatarsal amputation of her left foot to treat osteomyelitis and fractures. We will follow-up after the procedure. - Vitals Vitals: Last Vital Signs Temp 36.6 C 10/02/20 10:47 Pulse 52 L 10/02/20 10:47 Resp 18 10/02/20 10:47 BP 153/64 H 10/02/20 10:47 Pulse Ox 98 10/02/20 10:47 - Exam Constitutional: Present: Alert, Oriented x3, Cooperative, Well developed, Well nourished, No distress, Morbidly obese ENT Exam: Present: normal ENT inspection, hearing grossly normal, pharynx normal, TMs normal Neck: Present: non-tender, full range of motion, supple, normal inspection, trachea midline Breasts: Present: Exam deferred, Nontender Respiratory: Present: chest non-tender, lungs clear, normal breath sounds, no respiratory distress, no accessory muscle use Cardiovascular/Chest: Present: normal peripheral pulses, regular rate, rhythm, no chest tenderness, no edema, no gallop, no JVD, no murmur, no rub Abdomen: Present: Normal bowel sounds, soft, nontender, nondistended, no rebound tenderness, no hepatospenomegaly, no masses, obese /Rectal: Present: Exam deferred Extremity: Present: other - Left fourth and fifth toes covered by dry clean bandage Skin Exam: Present: normal color, warm/dry, no cyanosis Lymphatic: Present: no adenopathy Neurologic: Present: manager residential II-XII nml as tested, no motor/sensory deficits, alert, normal mood/affect, oriented x 3 Appearance: Present: appropriate appearance, appropriate insight, neat, no memory impairment Eye contact: Present: cooperative, good eye contact, normal speech Thoughts: Present: normal thought pattern, no apparent hallucination Assessment/Plan Plan Narrative: We will follow-up after the patient's procedure. - Problems/Diagnosis (1) Cellulitis of fourth toe of right foot Problem: Acute (2) Diabetes mellitus Problem: Chronic Qualifiers: Diabetes mellitus type: type 2 (3) Diabetic neuropathy associated with type 2 diabetes mellitus Problem: Acute (4) HTN (hypertension) Problem: Chronic (5) Hypothyroidism (acquired) Problem: Chronic (6) Morbid obesity Problem: Chronic (7) Acute osteomyelitis of phalanx of right foot Problem: Acute (8) Chronic fracture Problem: Chronic
[2020-10-02] MEDS ORDERED: LIDOCAINE HCL 50 ML VIAL ONE (11:58)
--- NOTE | 2020-10-02 14:52 | ANES ---
Anesthesia Pre Procedure Eval Vitals/Labs: Last Vital Signs Temp 36.6 C 10/02/20 10:47 Pulse 52 L 10/02/20 10:47 Resp 18 10/02/20 10:47 BP 153/64 H 10/02/20 10:47 Pulse Ox 98 10/02/20 10:47 Hemoglobin A1c 6.8 % (3.80-5.60) H 09/29/20 13:05 HOME MEDICATIONS albuterol sulfate 90 mcg/actuation breath activated powder inhaler 4 inh IH Q4H PRN 04/02/19 [Last Taken Unknown] Fluticasone Propionate [Flonase] 1 spray NS BID 01/25/20 [Last Taken Unknown] Levothyroxine Sodium [Synthroid] 75 mcg PO DAILY 01/25/20 [Last Taken Unknown] Losartan Potassium 50 mg PO DAILY 01/25/20 [Last Taken Unknown] Durable Medical Equipment See Rx Instructions .ROUTE .MEDSUPPLY #1 ea 03/03/20 [Last Taken Unknown] gabapentin 300 mg capsule 300 mg PO TID cap 06/03/20 [Last Taken Unknown] Allergies/Adverse Reactions: Allergies Allergy/AdvReac Type Severity Reaction Status Date / Time codeine [Codeine] Allergy Severe Itching Verified 09/29/20 12:31 latex Allergy Severe Itching Verified 09/29/20 12:31 - Planned Procedure Planned Procedure: cellulitis of right foot Medication List Reviewed:: Yes Allergies Verified: Yes Medical History (Last Reviewed 09/29/20 @ 12:32 by Jenny Knowles RN) Anxiety Asthma Deficient knowledge of caesarean delivery Depression Hypertension Type 2 diabetes mellitus Surgical History (Last Reviewed 09/29/20 @ 12:32 by Jenny Knowles RN) H/O dilation and curettage History of History of tonsillectomy S/P foot surgery Onset Date: ~01/27/20 OPERATION PERFORMED: Amputation right great toe at the metatarsal phalangeal joint Dr. Oviedo Family History (Last Reviewed 09/29/20 @ 12:32 by Jenny Knowles RN) Father CVA (cerebral vascular accident) Emphysema lung Mother Medical history unknown - Family Anesthesia History Family History:: no untoward family reactions to anesthesia, no familial bleeding tendencies, no family history of clotting disorders, no family history of premature - Airway/Neck/Teeth Teeth Condition: none Mallampatti Score: 3 Thyromental (T-M) distance: > 6 cm Mandibulo Hyoid distance: > 3 cm - Respiratory Respiratory Physical: lungs clear - Cardiovascular Tolerate Activity: Poor Heart Sounds: S1 & S2, Regular - Gastrointestinal NPO since: mn - Anesthesia Assessment and Plan ASA Class: PS, III Anesthesia Type Plan: MAC
--- NOTE | 2020-10-02 14:53 | ANES ---
Post Anesthesia Discharge - Transfer of Care Transfer of Care handoff given to nurse: Yes - Discharge from PACU Discharge from PACU when meets criteria: Yes - Discharge to ASU Discharge to ASU-no complications/pt stable: Yes
--- NOTE | 2020-10-02 14:55 | ANES ---
Post Anesthesia Assessment - Vital Signs Vitals: Last Vital Signs Temp 36.6 C 10/02/20 10:47 Pulse 52 L 10/02/20 10:47 Resp 18 10/02/20 10:47 BP 153/64 H 10/02/20 10:47 Pulse Ox 98 10/02/20 10:47 Airway Patency: Normal - Mental Status Level Of Consciousness: Awake - Pain Level Pain Score: 0 - N/V Assessment Nausea/Vomiting Presence: None Dehydration:: No
--- NOTE | 2020-10-02 16:04 | OR ---
Operative Report - Dictated Report Narrative: OPERATIVE REPORT Date of Surgery: 10/02/2020 Time of Surgery: 1305 Surgeon: Yadira Quintanilla DPM Speaker Mounter: None Preoperative Diagnosis: Osteomyelitis right foot Postoperative Diagnosis: Osteomyelitis right foot Procedure: Transmetatarsal amputation right foot with percutaneous Achilles tendon lengthening Pathology: Amputated portion of right foot sent to pathology for further evaluation; portion of bone removed from 4th toe right foot to be sent for cult ure. Anesthesia: Local with Monitored Anesthesia Care Hemostasis: Pneumatic calf tourniquet at 250 mmHg of pressure Estimated Blood Loss: Minimal Materials: 2-0 Vicryl suture, 3-0 Nylon suture Injectables: 30 mL of a 1:1 mix of 1% lidocaine and 0.5% Marcaine without Epinephrine Complications: None Procedure in Detail: Patient was brought into the operating room and placed on the operating table in the supine position. Pneumatic calf tourniquet was placed about the patient's right calf. Following IV sedation, local anesthesia was obtained about the right ankle in a high ring block fashion utilizing a total of 30 mL of a 1:1 mix of 1% lidocaine plain and 0.5% Marcaine plain, ensuring that anesthesia is obtained proximal to the level of the Achilles tendon lengthening. The foot was then scrubbed prepped and draped in the usual aseptic manner. An Esmarch bandage was then utilized to exsanguinate the patient's right foot and the pneumatic calf tourniquet was inflated. Attention was then directed to the patient's right foot where range of motion exam prior to surgery revealed mild limitation of dorsiflexion at the level of the ankle. There were concerns that this limited range of motion may lead to unnecessary stresses on the plantar amputation stump. It was felt that an Achilles tendon lengthening would help reduce these stresses. Attention was directed to the posterior aspect of the patient's right heel where the Achilles tendon was outlined utilizing a marking pen. Next, a stab incision was created in the central aspect of the tendon approximately 2 cm proximal to it's insertion to the heel. Once stab incision was made, the #15 blade was turned medially, and the medial 1/2 of the tendon was transected. The blade was then removed, and this same technique was utilized to create another incision approximately 1.5 cm proximal to the first, this time transecting the lateral 1/2 of the tendon. The foot was dorsiflexed to assess for improvement in ROM, and there was still reduced dorsiflexion at the ankle. One final incision was then created 1.5 cm proximal the the second incision, and the medial 1/2 of the tendon was transected. Following this final incision, ROM was noted to improve significantly. Once this tendon lengthening was completed the stab incisions were flushed and the skin was reapproximated and coapted utilizing 3-0 nylon in a simple interrupted suture technique. Attention was then directed to the distal aspect of the patient's right foot where a [place] type incision was created from medial to lateral encompassing the distal foot. A long plantar flap was created with this incision to allow for adequate closure of this incision with minimal stress on the skin. Dissection was continued directly down to the level of bone utilizing sharp dissection. Once each of the metatarsals was visualized a transverse periosteal incision was created over the dorsal aspects of each of these bones. Next utilizing a [place] elevator periosteal structures were carefully dissected free of their osseous attachments and reflected proximally exposing the proximal aspect of these metatarsals into the operative site. Next utilizing a sagittal bone saw, through and through osteotomies were created through each of these metatarsals. The distal foot was then freed of remove any remaining soft tissue attachments and this amputated portion was removed in its entirety. Attention was redirected back to the surgical site which was inspected for any possible nonviable or necrotic tissue and none was appreciated. All tissues appeared to be red and healthy in appearance. The ends of the metatarsal bones were inspected for any possible purulence that may be present within the medullary canals and none was appreciated. Bones are very firm on palpation and white in color. It was felt that all bone that was concerning for infection had been removed at this time. This wound was then flushed with copious amounts of sterile normal saline. Subcutaneous tissues were then reapproximated and coapted utilizing 2-0 Vicryl suture and the skin was reapproximated and coapted utilizing 3-0 Monocryl in both a simple interrupted as well as horizontal mattress suture technique. Following completion of this procedure, the pneumatic ankle tourniquet was deflated and prompt hyperemic response was noted to the amputation stump of the right foot. The incisions were covered with Adaptic and dressed with a sterile compressive dressing consisting of 4 x 4's, an ABD pad, Kerlix and Stephen, secured with an RADHA bandage. A postoperative boot was not able to be applied directly following surgery due to the bulk of the dressing, but will be applied tomorrow following dressing change. Patient tolerated procedure and anesthesia well. She was transferred to recovery with vital signs stable and vascular status intact to the remainder of the right foot. Following a period of postoperative monitoring, the patient was transferred back to her room on the [facility] floor with the following written and oral postoperative instructions: 1. Keep the dressing clean dry and intact. Nursing may reinforce dressing if needed for any strike-through bleeding 2. Avoid all ambulation on the right foot. She is to be non-weightbearing at this time, and PT is ordered for crutch/walker training. 3. Ice and elevate the right foot 4. Wear surgical boot on the right foot at all times while ambulating 5. Contact my office for all postoperative follow-up care, and should any problems arise
[2020-10-02] MEDS: ENOXAPARIN SODIUM 40 MG/0.4 ML SYRG SC SCH (21:06)
[2020-10-02] MEDS: traMADol HCL 50 MG TABLET PO PRN (21:53)
[2020-10-03] MEDS: traMADol HCL 50 MG TABLET PO PRN ×2 (05:17→12:55)
[2020-10-03] MEDS: PANTOPRAZOLE SODIUM 20 MG TABLET.DR PO SCH (07:18)
[2020-10-03] MEDS: ACETAMINOPHEN 325 MG TABLET PO PRN (07:18)
[2020-10-03] MEDS: LEVOTHYROXINE SODIUM 75 MCG TABLET PO SCH (07:18)
[2020-10-03] MEDS: amLODIPine BESYLATE 10 MG TABLET PO SCH (08:37)
[2020-10-03] MEDS: LOSARTAN POTASSIUM 50 MG TABLET PO SCH (08:37)
[2020-10-03] MEDS: FLUTICASONE PROPIONATE 120 SPRAY INHALER NS SCH ×2 (08:40→20:00)
[2020-10-03] MEDS: GABAPENTIN 300 MG CAPSULE PO SCH ×3 (08:40→16:11)
--- NOTE | 2020-10-03 08:46 | PN ---
Subjective - Date and Time Seen Date: 10/03/20 Time: 08:34 Subjective Narrative: Patient is seen today resting in bed. Dressing intact to right foot and she is elevating at all times when resting. States she is having pain today, as high as 8/10 a times. She is currently taking Tramadol 50 mg every 6 hours as needed, as well as Tylenol as needed in between doses. States it is working ok, but has not had complete pain relief. She has also been having some muscle spasms/cramps that have been contributing to her pain. She has concerns with use of wheeled walker. Feels it is going to roll out from under her. Has questions about a knee scooter instead. States she has not yet been seen by Physical Therapy for walker/crutch training. Is nervous to go home, but states if she has to go she does have some friends who can help her out. Objective - Review of Systems Generalized/Overall Review: Denies: Chills, Fever, Fatigue Respiratory: Denies: Shortness of Breath Cardiac: Reports: Edema Abdominal: Denies: Nausea, Vomiting, Diarrhea Musculoskeletal Complaints: Reports: Muscle Pain - cramping/spasms, Other - right foot pain; TMA right foot Neurological: Reports: Numbness Skin: Reports: Other - incision right foot following TMA - Vitals Vitals: Last Vital Signs Temp 36.6 C 10/03/20 06:17 Pulse 60 10/03/20 06:17 Resp 18 10/03/20 06:17 BP 130/59 10/03/20 06:17 Pulse Ox 95 10/03/20 06:17 - Exam Exam Narrative: Dressing to right foot CDI. There is moderate bloody drainage within the gauze layers only, does not drain through to RADHA bandage. Incisions x3 to posterior ankle following MYKEL well approximated with sutures intact. No active drainage from these sites. Incision over TMA site well approximated with sutures intact. Still with some minimal bloody drainage, most notable to the lateral aspect of the incision line. Skin is pink and healthy in appearance, capillary refill brisk to amputation stump. There is moderate swelling, however she does also have pedal edema from prior to surgery. Moderate tenderness noted over amputation stump, most notable at the central aspect of the incision line. Constitutional: Present: Alert, Oriented x3, Cooperative, No distress Extremity: Present: normal capillary refill, lower extremity edema Skin Exam: Present: other - see above Neurologic: Present: sensory deficit Appearance: Present: appropriate appearance Eye contact: Present: cooperative Thoughts: Present: normal thought pattern Assessment/Plan Plan Narrative: Patient doing well following transmetatarsal amputation of her right foot yesterday, however still with a significant amount of pain that is not being well controlled with current medications. Will increase tramadol to 100 mg ever y 6 hours as needed for pain to see if this helps. I discussed her muscle spasms/cramping with Dr. Hernandez, and will also add flexeril to see if that also helps provide relief. Drug warnings are given to patient, and she is in agreement with treatment. Due to poor pain control, I would recommend one more night stay in the hospital to be sure pain is better controlled when discharged home. This is also discussed with Dr. Hernandez, and he agrees with this plan. Dressing is changed today. Incision remains well approximated and skin to the amputation stump is healthy, pink in appearance with brisk color return. Still with some bloody drainage. A new dry sterile dressing is applied today with mild compression to help reduce remaining bleeding. Dressing remains very bulky, and foot will still not fit in to her CAM boot very well. As long as she is able to keep weight off of the foot with transfers, can keep boot off. Continue to elevate foot when resting. Can apply ice across the ankle for 15 minutes as needed, remove for 20 minutes before reapplying. Will await PT eval for crutch vs walker training. May need to switch to a standard walker instead of a wheeled walker. Discussed use of a knee scooter, and I am happy to place an order for this, however it is not often covered by insurance, so would be an out of pocket rental charge. States she does not have a lot of money, but would like one ordered and she will try to figure something out. I will plan to see her again tomorrow morning to make sure pain is well controlled and she is comfortable with her non-weightbearing on this foot. Plan for discharge home tomorrow. Advised I would likely follow up on Monday, however she states that she will have to speak with her transportation as she believes they may also h ave an appointment on Monday which would conflict with her ability to come to a follow up with me. Will continue to discuss, and will plan accordingly. - Problems/Diagnosis (1) Osteomyelitis of right foot Problem: Acute Qualifiers: Osteomyelitis type: other acute Qualified Code(s): M86.171 - Other acute osteomyelitis, right ankle and foot (2) Cellulitis of fourth toe of right foot Problem: Resolved
--- NOTE | 2020-10-03 09:51 | PN ---
Subjective - Date and Time Seen Date: 10/03/20 Time: 09:50 Subjective Narrative: Patient very pleasant today, fun to speak with. She does have concerns her pain is significant, especially during dressing changes. Patient requiring oral pain medicine scheduled every [address]iscuss[address] this with Dr. Quintanilla who both agree that scratch that 1 more day to see if we can better pain control. She is also having muscle spasms is wondering if there is anything that can be given to her to help with this. Otherwise her blood work is fairly unremarkable. She is mildly anemic following surgery, due to blood loss, but stable. Will repeat CBC in the morning tomorrow that she is noticing overnight. Kidney functions appropriate. She has no other concerns at this time other than the pain in her lower extremity. Waiting for physical therapy to evaluate her. Objective - Review of Systems Generalized/Overall Review: Denies: Weakness, Chills, Fever EENTM: Reports: No Symptoms Reported Respiratory: Reports: No Symptoms Reported Abdominal: Denies: Nausea, Vomiting Musculoskeletal Complaints: Reports: Other - Right foot pain, muscle cramping and pain around insertion. Neurological: Reports: No Symptoms Reported Endocrine: Reports: No Symptoms Reported - Vitals Vitals: Last Vital Signs Temp 36.6 C 10/03/20 06:17 Pulse 60 10/03/20 08:37 Resp 18 10/03/20 06:17 BP 130/59 10/03/20 08:37 Pulse Ox 95 10/03/20 06:17 - Exam Constitutional: Present: Alert, Oriented x3, Cooperative, Moderate distress - During dressing change, Obese ENT Exam: Present: hearing grossly normal. Absent: nasal congestion, nasal drainage Respiratory: Present: lungs clear, normal breath sounds Cardiovascular/Chest: Present: regular rate, rhythm, no murmur Abdomen: Present: soft, nontender, nondistended Extremity: Present: leg cramps - RLE spasms and cramping, other - Right for discomfort with dressing change, some blood loss leaked in to the dressings. New dressing being applied, incision approximated well and should heal nicely. Skin Exam: Present: normal color, warm/dry Appearance: Present: appropriate appearance, appropriate insight Thoughts: Present: normal thought pattern, normal mood /affect Assessment/Plan Plan Narrative: 64-year-old female status post day 1 of right transmetatarsal amputation secondary to osteomyelitis from her diabetes. Patient tolerated surgery well and had minimal blood loss. Repeat CBC the morning. Patient's pain not well controlled though with tramadol 50 every 6 hours, increased by Dr. Quintanilla to 100 mg every 6 hours. Also added Flexeril for muscle spasms of her right lower extremity. Will recheck on her pain this afternoon. Patient also waiting for physical therapy. Her diabetes is well controlled with sugars ranging anywhere from low 100s to 140s. Continue current treatment plan for this. Continue consistent carbohydrate diet. Will recheck sugars before meals at bedtime Patient is a chronic medications of been restarted including her levothyroxine at 75 mcg. Her blood pressure medications which show her to be well controlled. Patient has a history of bradycardia which is worked up and that it is a recommended. She is not on a beta-parviz. Heart rates in the 50s and 60s at this time. She said she feels well and denies any symptoms. Likely discharge home tomorrow if pain better controlled. Will check on PT recommendations in the morning. Nurse to call questions or concerns. - Problems/Diagnosis (1) Status post transmetatarsal amputation of right foot Problem: Acute (2) Osteomyelitis of right foot Problem: Acute Qualifiers: Osteomyelitis type: other acute Qualified Code(s): M86.171 - Other acute osteomyelitis, right ankle and foot (3) Diabetes mellitus Problem: Chronic Qualifiers: Diabetes mellitus type: type 2 (4) HTN (hypertension) Problem: Chronic (5) Hypothyroidism (acquired) Problem: Chronic (6) Morbid obesity Problem: Chronic
[2020-10-03] MEDS: CYCLOBENZAPRINE HCL 10 MG TABLET PO PRN ×2 (10:00→22:21)
[2020-10-03] MEDS: ENOXAPARIN SODIUM 40 MG/0.4 ML SYRG SC SCH (19:55)
[2020-10-04] MEDS: traMADol HCL 50 MG TABLET PO PRN ×2 (04:52→11:02)
[2020-10-04] MEDS: LEVOTHYROXINE SODIUM 75 MCG TABLET PO SCH (06:30)
[2020-10-04] MEDS: PANTOPRAZOLE SODIUM 20 MG TABLET.DR PO SCH (06:31)
[2020-10-04 06:47] LABS: Hemoglobin 10.7 gm/dL (12.5-16.0); Mean Cell Volume 86.5 fl (78-100); Mean Corpuscular Hemoglobin 28.9 pg (27-31); Mean Corpuscular Hgb Conc 33.4 g/dl (32-36); Mean Platelet Volume 9.5 fl (8-12.5); Platelet Count 269 K/mm3 (150-450); Red Cell Distribution Width 14.6 % (11.5-14.0)
[2020-10-04] MEDS: LOSARTAN POTASSIUM 50 MG TABLET PO SCH (08:02)
[2020-10-04] MEDS: amLODIPine BESYLATE 10 MG TABLET PO SCH (08:03)
[2020-10-04] MEDS: FLUTICASONE PROPIONATE 120 SPRAY INHALER NS SCH (08:04)
[2020-10-04] MEDS: GABAPENTIN 300 MG CAPSULE PO SCH ×2 (08:08→12:43)
--- NOTE | 2020-10-04 09:48 | PN ---
Subjective - Date and Time Seen Date: 10/04/20 Time: 09:23 Subjective Narrative: Patient is seen today resting in bed. Dressing intact to right foot and she is elevating at all times when resting. States her pain is much better controlled today. She is currently taking Tramadol 100 mg every 6 hours as needed, as well as Tylenol as needed in between doses. She has also been having some muscle spasms/cramps, and was given order for flexeril yesterday. She reports this has also provided a lot of relief, and she has has only had very mild cramping once or twice since. She has concerns with use of the walker. States she has very poor balance and is afraid of falling, even with the walker. She has been transitioned from a wheeled walker to a standard walker, and she states this is better, but she still feels unsteady having to hop on one foot. An order was written for her yesterday for a knee scooter that she can take with her at discharge, as we do not have any here. Reports she is ready to go home now. Objective - Review of Systems Generalized/Overall Review: Denies: Chills, Fever, Fatigue Respiratory: Denies: Shortness of Breath Cardiac: Reports: Edema Abdominal: Denies: Nausea, Vomiting, Diarrhea Musculoskeletal Complaints: Reports: Other - right TMA; right foot pain - impro ving Neurological: Reports: Numbness Skin: Reports: Other - incision right foot following TMA Endocrine: Denies: Intolerance to Cold, Intolerance to Heat - Vitals Vitals: Last Vital Signs Temp 36.2 C 10/04/20 06:00 Pulse 57 L 10/04/20 08:03 Resp 18 10/04/20 06:00 BP 122/58 10/04/20 08:03 Pulse Ox 95 10/04/20 06:00 - Abnormal Lab Findings Abnormal Lab Findings: Abnormal Lab Results 10/04/20 Range/Units 06:39 RBC 3.70 L (4.2-5.4) M/mm3 Hgb 10.7 L (12.5-16.0) gm/dL Hct 32.0 L (37.0-47.0) % RDW 14.6 H (11.5-14.0) % Eosinophils % 9.0 H (0.0-3.0) % Eosinophils # 0.8 H (0.0-0.7) k/mm3 - Exam Exam Narrative: Dressing to right foot CDI. There is minimal bloody drainage today, much improved since yesterday's dressing change. Incisions x3 to posterior ankle following MYKEL well approximated with sutures intact. No active drainage from these sites. Incision over TMA site well approximated with sutures intact. Still with some scant bloody drainage from the lateral aspect of the incision line that develops when dressing is removed. Skin is pink and healthy in appearance, capillary refill brisk to amputation stump. There is moderate swelling, however she does also have pedal edema from prior to surgery. Mild tenderness noted over amputation stump, most notable at the central aspect of the incision line. This has improved significantly since visit yesterday morning. Constitutional: Present: Alert, Oriented x3, Cooperative, No distress Extremity: Present: lower extremity edema, pedal edema Skin Exam: Present: other - see above Neurologic: Present: sensory deficit Appearance: Present: appropriate appearance Eye contact: Present: cooperative Thoughts: Present: normal thought pattern Assessment/Plan Plan Narrative: Patient progressing well following transmetatarsal amputation of her right foot 2 days ago. Pain is well controlled with increase of tramadol to 100 mg every 6 hours as needed. Her cramping/muscle spasms have also improved with addition of flexeril. Dressing is changed today. Incisions remain well approximated and skin to the amputation stump is healthy, pink in appearance with brisk color return. Still with scant bloody drainage, however this is likely due to disruption of the incision with removal of the dressing. A new dry sterile dressing is applied today with mild compression to help reduce remaining bleeding. Dressing has been de-bulked today, and foot now will fit in to CAM boot, however front plate does not fit well to her foot. It is ok to leave this off, as she will not be placing much weight on her foot. With ability to put the boot on her foot, can transition to toe touch weight bearing as needed for stability purposes. Continue to elevate foot when resting. Can apply ice across the ankle for 15 minutes as needed, remove for 20 minutes before reapplying. Discussed use of a knee scooter, and I have written an order for this and placed in her chart, however reminded her it is not often covered by insurance, so would be an out of pocket rental charge. She will look in to this tomorrow when [facility] is open. I believe she is stable for discharge home at this time. She is instructed to wear her boot at all times unless she is sleeping. She may do toe touch weight bearing only on this foot, and only for stability purposes. She states understanding of this. Bone culture returned growing Group G Strep, however no CONSTANZA available. Would recommend at least 1 week of antibiotic treatment following discharge. Will discuss with Dr. Hernandez appropriate oral antibiotic coverage. Would like to follow up with patient tomorrow in my office, however she states that her transportation has appointments of their own tomorrow so likely will not be able to schedule follow up with me until she has discussed with them. I will have my nursing staff contact her tomorrow for a status check, and to schedule follow up visit. She is to keep her dressing clean, dry and intact until her follow up. She may reinforce the dressing as needed, or call my office or present to Urgent Care or ED should she have a significant amount of bleeding through the dressing. Instructions discuss with patient and she voices understanding. - Problems/Diagnosis (1) Osteomyelitis of right foot Problem: Acute Qualifiers: Osteomyelitis type: other acute Qualified Code(s): M86.171 - Other acute osteomyelitis, right ankle and foot (2) Cellulitis of fourth toe of right foot Problem: Resolved
[2020-10-04] MEDS: ACETAMINOPHEN 325 MG TABLET PO PRN (12:42)
--- NOTE | 2020-10-04 13:44 | DS ---
(1) Status post transmetatarsal amputation of right foot Problem: Acute (2) Osteomyelitis of right foot Problem: Acute Qualifiers: Osteomyelitis type: other acute Qualified Code(s): M86.171 - Other acute osteomyelitis, right ankle and foot (3) Diabetes mellitus Problem: Chronic Qualifiers: Diabetes mellitus type: type 2 (4) HTN (hypertension) Problem: Chronic (5) Hypothyroidism (acquired) Problem: Chronic (6) Morbid obesity Problem: Chronic Date of Discharge:: 10/04/20 Hospital Course: 64-year-old female with longstanding diabetes which resulted previously insulin infections and application of a right great toe presented to the hospital 5 days ago for worsening fourth and fifth toe pain. She was found to have cellulitis with underlying osteomyelitis of those digits. Dr. Quintanilla was consulted who determined she needed to have a right midfoot transmetatarsal amputation of her remaining digits. Surgery was performed on the which she tolerated well. She did have minimal blood loss where her hemoglobin was 12.4 on admission and it trended down to 10.6. On day of discharge was 10.7. No signs of infection and wound was closely approximated and should heal well. Dressing changes were made daily by Dr. Quintanilla. Pain control was adequate with oral pain medications which should be discharged home on. Her blood sugars were well controlled while she was here. Her vital signs are stable and she has been afebrile. Patient states that her pain in her right lower extremity is much better following the surgery. Instructions the patient on nonweightbearing status given by Dr. Quintanilla. Again recommended patient stay off her foot as much possible and if she can get along with her walker without toe-touch as that would be best for her. She will schedule follow with Dr. Quintanilla in the next day or 2 once her transportation staff is worked out. Patient be discharged home on tramadol 100 mg every 6 hours as needed as well as Bactrim double strength twice daily for 7 days. The rest of her medications will be continued without changes. Home health will be ordered as she is in need of senior care facility as well as physical therapy. Lupe is in need of home health as she is homebound due to her recent transmetatarsal surgery and her poorly controlled diabetes. The need for senior care is to help her with dressing changes, medication management, and sugar monitoring. The need for physical therapy is to help with gait stability, maintaining weightbearing restrictions, and conditioning of her weakened muscles. The need for home health care skilled services directly related to the time spent [id number] with this patient. Procedures Performed: see notes below - Transmetatarsal amputation right foot Results and Findings: Pending Mircobiology Results 09/29/20 13:56 Blood Blood Culture - Preliminary NO GROWTH AFTER 48 HOURS 09/29/20 12:45 Blood Blood Culture - Preliminary NO GROWTH AFTER 48 HOURS Lab Pending Results 09/29/20 13:05: WBC 14.9 H, RBC 4.24, Hgb 12.4 L, Hct 36.6 L, MCV 86.3, MCH 29.2, MCHC 33.9, RDW 14.9 H, Plt Count 281, MPV 9.3, Immature Gran % (Auto) 0.40, Immature Gran # (Auto) 0.06 H, Neutrophils % 70.5, Lymphocytes % 17.1 L, Monocytes % 7.0, Eosinophils % 3.8 H, Basophils % 1.2 H, Nucleated RBC % 0.0, Neutrophils # 10.5 H, Lymphocytes # 2.55, Monocytes # 1.0, Eosinophils # 0.6, Absolute Basophils 0.2 H 09/29/20 13:05: PT 10.7, INR (Anticoag Therapy) 1.03, PTT ([place]) 28.7 09/29/20 13:05: Sodium 137, Plasma Sodium 137, Potassium 4.8 H D, Chloride 103, Carbon Dioxide 28.1, Anion Gap 10.7, BUN 28 H D, Creatinine 1.13, Est GFR (Non- Af Amer) 52 L, BUN/Creatinine Ratio 24.8 H, Random Glucose 101, Calcium 9.2, Calcium Adj for Albumin 9.4, Total Bilirubin 0.4, AST 11, ALT 13 L, Alkaline Phosphatase 82, Troponin I Less than 0.017, C-Reactive Prot, Quant 16.4 H, Total Protein 8.4 H, Albumin 3.3 L 09/29/20 13:05: Lactic Acid, Venous 1.8 09/29/20 13:05: Mean Blood Glucose 148, Hemoglobin A1c 6.8 H 09/29/20 15:00: SARS-CoV-2 (PCR) Not detected 09/30/20 06:17: WBC 8.7 D, RBC 3.66 L, Hgb 10.6 L, Hct 31.8 L, MCV 86.9, MCH 29.0, MCHC 33.3, RDW 14.7 H, Plt Count 235, MPV 9.4, Immature Gran % (Auto) 0.30, Immature Gran # (Auto) 0.03, Neutrophils % 61.6, Lymphocytes % 25.1, Monocytes % 6.0, Eosinophils % 6.0 H, Basophils % 1.0, Nucleated RBC % 0.0, Neutrophils # 5.4, Lymphocytes # 2.18, Monocytes # 0.5, Eosinophils # 0.5, Absolute Basophils 0.1 09/30/20 06:17: Sodium 139, Plasma Sodium 139, Potassium 3.9, Chloride 108 H, Carbon Dioxide 24.3, Anion Gap 10.6, BUN 22, Creatinine 0.96, Est GFR (Non-Af Amer) 63 D, BUN/Creatinine Ratio 22.9 H, Random Glucose 119 H, Calcium 8.3, Calcium Adj for Albumin 9.1, Total Bilirubin 0.5, AST 11, ALT 12 L, Alkaline Phosphatase 63, Total Protein 7.0, Albumin 2.6 L 10/04/20 06:39: WBC 9.0, RBC 3.70 L, Hgb 10.7 L, Hct 32.0 L, MCV 86.5, MCH 28.9, MCHC 33.4, RDW 14.6 H, Plt Count 269, MPV 9.5, Immature Gran % (Auto) 0.20, Immature Gran # (Auto) 0.02, Neutrophils % 56.0, Lymphocytes % 26.9, Monocytes % 6.9, Eosinophils % 9.0 H, Basophils % 1.0, Nucleated RBC % 0.0, Neutrophils # 5.0, Lymphocytes # 2.41, Monocytes # 0.6, Eosinophils # 0.8 H, Absolute Basophils 0.1 Discharge Location: Home Disposition: Home Health Service Home Health Agency: [facility] Home Health Condition: Stable Face to Face Encounter completed per CMS Guidelines: Yes Discharge Activity: Activity as tolerated Discharge Diet: Consistent carbs Referrals: Mariama Vogel APRN [Primary Care Provider] - One Week Problem Oriented Discharge Instructions to Patient/Family: Toe Amputation, Care After, Toe Amputation Additional Patient Instructions (free text): Please fax records from stay to [facility]. [facility] Home Health new at discharge- nursing and therapy, please call and have information faxed to them. Follow up with Dr Quintanilla's office Keep the dressing clean dry and intact. May reinforce dressing if needed for any strike-through bleeding Ice and elevate the right foot Wear surgical boot on the right foot at all times while ambulating Contact 's office for all postoperative follow-up care, and should any problems arise. 's nurse will call you tomorrow. Transition to toe touch weight bearing as needed for stability purposes. Continue to elevate foot when resting. Can apply ice across the ankle for 15 minutes as needed, remove for 20 minutes b efore reapplying. May use knee scooter. Call [facility] tomorrow when open to discuss rental charge. Prescriptions (Any new or edited meds): Sulfamethoxazole/Trimethoprim [Bactrim Ds] 1 tab PO BID #14 tab Transmission Status: Pending to [place], [place] Cyclobenzaprine HCl [Flexeril] 10 mg PO TID PRN #30 tab PRN Reason: Muscle Spasm Transmission Status: Pending to [facility], [place] amLODIPine BESYLATE [Norvasc] 10 mg PO DAILY #30 tab Transmission Status: Pending to [place], [place] traMADol HCL [Ultram] 100 mg PO Q6H PRN #60 tab PRN Reason: Pain Transmission Status: Received by [place], [place] Complete Home Medications List: Complete Home Medication List: albuterol sulfate 90 mcg/actuation breath activated powder inhaler 4 inh IH Q4H PRN 04/02/19 Fluticasone Propionate [Flonase] 1 spray NS BID 01/25/20 Levothyroxine Sodium [Synthroid] 75 mcg PO DAILY 01/25/20 Losartan Potassium 50 mg PO DAILY 01/25/20 Durable Medical Equipment See Rx Instructions .ROUTE .MEDSUPPLY #1 ea 03/03/20 gabapentin 300 mg capsule 300 mg PO TID cap 06/03/20 Durable Medical Equipment See Rx Instructions .MEDSUPPLY #1 ea 10/03/20 Acetaminophen [Tylenol] 650 mg PO Q4H PRN tablet 10/04/20 Cyclobenzaprine HCl [Flexeril] 10 mg PO TID PRN #30 tab 10/04/20 Sulfamethoxazole/Trimethoprim [Bactrim Ds] 1 tab PO BID #14 tab 10/04/20 amLODIPine BESYLATE [Norvasc] 10 mg PO DAILY #30 tab 10/04/20 traMADol HCL [Ultram] 100 mg PO Q6H PRN #60 tab 10/04/20 Forms: Patient Portal Registration
[2020-10-04 14:56] VITALS: BP 113/62
== END 2020-10-04 15:45 | disposition home health service (06) | DRG 617 ==
LOC: ER 12:01 → MS 12:01
PROVIDERS: ADMIT Family Medicine; ATTEND Family Medicine
DX: E03.9 Hypothyroidism, unspecified; Z68.36 Body mass index [BMI] 36.0-36.9, adult; M84.477A Pathological fracture, right toe(s), initial encounter for fracture; M86.171 Other acute osteomyelitis, right ankle and foot; E11.40 Type 2 diabetes mellitus with diabetic neuropathy, unspecified; L03.031 Cellulitis of right toe; E11.69 Type 2 diabetes mellitus with other specified complication; E66.01 Morbid (severe) obesity due to excess calories; B95.4 Other streptococcus as the cause of diseases classified elsewhere; I10 Essential (primary) hypertension